=== PATIENT | male | born 1955 | race Caucasian/White ===

== ENCOUNTER → 2016-06-23 | Outpatient (REF) | payer OTHER ==
[~2016-06-23] MED LIST: ASPI81TA85 PO; CELE-19 PO; COUM1TAB17 PO; CRES20TA PO; GABA600T PO; JANU100T PO; JARDIANCE PO; LANTINJ4 SC; LISI-538 PO; LYRI75CA PO; METF1000 PO; MOBI15TA PO; MULT1TAB9 PO; OMEP20CA3 PO; PERC5TAB6 PO; acetaminophen PO; sleep aid OR; tramadol OR
[2016-06-23 11:41] LABS: ANION GAP 9 MEQ/L (8-16); BLOOD UREA NITROGEN 19 MG/DL (7-18); CALCIUM LEVEL 9.3 MG/DL (8.8-10.2); CARBON DIOXIDE LEVEL 29 MEQ/L (21-32); CHLORIDE LEVEL 105 MEQ/L (98-107); CHOLESTEROL LEVEL 124 MG/DL (<200); CREATININE FOR GFR 1.02 MG/DL (0.70-1.30); GLOMERULAR FILTRATION RATE > 60.0 (>49); GLUCOSE, FASTING 109 MG/DL (80-110); POTASSIUM SERUM 4.2 MEQ/L (3.5-5.1); SODIUM LEVEL 143 MEQ/L (136-145); TRIGLYCERIDES LEVEL 118 MG/DL (<150)
== END ==
LOC: M SFHCCLAY 08:32
PROVIDERS: ATTEND Family Medicine
DX: I10 Essential (primary) hypertension (principal); E11.9 Type 2 diabetes mellitus without complications

== ENCOUNTER → 2016-09-20 | Outpatient (REF) | payer OTHER | LOC: M SFHCCLAY 09:51 | PROVIDERS: ATTEND Family Medicine | DX: E11.9 Type 2 diabetes mellitus without complications (principal) ==

== ENCOUNTER → 2016-11-07 | Outpatient (REF) | payer OTHER ==
[2016-11-07 11:57] LABS: BASO % 0.8 % (0.0-1.0); EOS # 0.1 K/mm3 (0.0-0.50); EOS % 1.6 % (0.0-3.0); LARGE UNSTAINED CELL # 0.2 K/mm3 (0.0-0.4); LARGE UNSTAINED CELL % 2.3 % (0.0-4.0); LYMPH # 1.8 K/mm3 (1.5-4.5); LYMPH % 26.9 % (24.0-44.0); MEAN CORPUSCULAR HEMOGLOBIN 28.8 pg (27.0-33.0); MEAN CORPUSCULAR HGB CONC 32.8 g/dl (32.0-36.5); MEAN CORPUSCULAR VOLUME 87.7 fl (80.0-96.0); MONO # 0.4 K/mm3 (0.0-0.8); MONO % 5.8 % (0.0-5.0); NEUTROPHILS # 4.1 K/mm3 (1.8-7.7); NEUTROPHILS % 62.6 % (36.0-66.0); PLATELET COUNT, AUTOMATED 165 k/mm3 (150-450); RED CELL DISTRIBUTION WIDTH 14.4 % (11.5-14.5); WHITE BLOOD COUNT 6.5 K/mm3 (4.0-10.0)
[2016-11-07 13:19] LABS: ERYTHROCYTE SEDIMENTATION RATE 2 mm/hr (0-20)
[2016-11-09 00:10] LABS: Lyme Disease IgG/IgM Antibodie <0.91 ISR (0.00-0.90); Lyme Disease IgM Ab Quantitati <0.80 index (0.00-0.79)
== END ==
LOC: M LABDRAW1 11:18
PROVIDERS: ATTEND Orthopaedic Surgery
DX: M75.111 Incomplete rotator cuff tear or rupture of right shoulder, not specified as traumatic (principal)

== ENCOUNTER → 2017-01-04 | Outpatient (REF) | payer OTHER ==
[~2017-01-04] MED LIST changes: -CELE-19 PO; +CELE1CAP4 PO; -METF1000 PO; +METF10004 PO; +PERC5TAB12 PO; -PERC5TAB6 PO
[2017-01-04 11:43] LABS: ALT/SGPT 45 U/L (12-78); ANION GAP 9 MEQ/L (8-16); BLOOD UREA NITROGEN 16 MG/DL (7-18); CALCIUM LEVEL 9.5 MG/DL (8.8-10.2); CARBON DIOXIDE LEVEL 29 MEQ/L (21-32); CHLORIDE LEVEL 103 MEQ/L (98-107); CHOLESTEROL LEVEL 148 MG/DL (<200); CREATININE FOR GFR 1.07 MG/DL (0.70-1.30); GLOMERULAR FILTRATION RATE > 60.0 (>49); GLUCOSE, FASTING 119 MG/DL (80-110); POTASSIUM SERUM 4.3 MEQ/L (3.5-5.1); SODIUM LEVEL 141 MEQ/L (136-145); TRIGLYCERIDES LEVEL 163 MG/DL (<150)
== END ==
LOC: M SFHCCLAY 07:34
PROVIDERS: ATTEND Family Medicine
DX: E11.40 Type 2 diabetes mellitus with diabetic neuropathy, unspecified (principal); Z79.4 Long term (current) use of insulin

== ENCOUNTER → 2017-04-18 | Outpatient (REF) | payer OTHER ==
[2017-04-18 11:58] LABS: ANION GAP 8 MEQ/L (8-16); BLOOD UREA NITROGEN 16 MG/DL (7-18); CALCIUM LEVEL 9.6 MG/DL (8.8-10.2); CARBON DIOXIDE LEVEL 29 MEQ/L (21-32); CHLORIDE LEVEL 104 MEQ/L (98-107); CREATININE FOR GFR 0.95 MG/DL (0.70-1.30); GLOMERULAR FILTRATION RATE > 60.0 (>49); GLUCOSE, FASTING 121 MG/DL (80-110); POTASSIUM SERUM 4.3 MEQ/L (3.5-5.1); SODIUM LEVEL 141 MEQ/L (136-145)
== END ==
LOC: M SFHCCLAY 08:48
PROVIDERS: ATTEND Family Medicine
DX: E11.9 Type 2 diabetes mellitus without complications (principal)

== ENCOUNTER → 2017-05-04 | Outpatient (CLI) | payer OTHER ==
--- NOTE | 2017-05-04 09:42 | REP ---
Clinical: Epigastric pain and nausea. Technique: Real time castro scale ultrasound examination using curved array transducer. Findings: The liver demonstrates diffuse increased parenchymal echogenicity with poor through transmission compatible with fatty infiltration. No focal hepatic lesion identified. Visualized portions of the pancreas are unremarkable although limited by interposed bowel gas. The gallbladder is normal and without gallstones, wall thickening, or pericholecystic fluid. No significant biliary ductal dilatation is appreciated and the common bile duct measures 7 mm maximal diameter (upper limits of normal). Right kidney demonstrates mild cortical lobulation along with 1.9 cm and 1.0 cm mid and lower pole complex cysts which appear essentially unchanged compared to CT dated 2010. No hydronephrosis. Right kidney measures 12.8 x 6.6 x 5.3 cm. No ascites. Impression: 1. Hepatosteatosis without focal hepatic lesion identified. 2. Chronic-appearing changes to the kidney as well as two complex cysts which are essentially unchanged compared to CT dated 2010, but may warrant annual sonographic follow-up examination. Signed by Tor Bautista MD 05/04/2017 09:34 A
== END ==
LOC: M RAD 08:01
PROVIDERS: ATTEND Family Medicine
DX: R11.0 Nausea (principal)

== ENCOUNTER → 2017-06-29 | Outpatient (REF) | payer OTHER ==
[2017-06-29 14:12] LABS: ANION GAP 9 MEQ/L (8-16); BLOOD UREA NITROGEN 17 MG/DL (7-18); CALCIUM LEVEL 9.1 MG/DL (8.8-10.2); CARBON DIOXIDE LEVEL 26 MEQ/L (21-32); CHLORIDE LEVEL 106 MEQ/L (98-107); CREATININE FOR GFR 1.02 MG/DL (0.70-1.30); GLOMERULAR FILTRATION RATE > 60.0 (>49); GLUCOSE, FASTING 96 MG/DL (80-110); POTASSIUM SERUM 4.4 MEQ/L (3.5-5.1); SODIUM LEVEL 141 MEQ/L (136-145)
== END ==
LOC: M LABDRAWC 12:14
DX: M65.311 Trigger thumb, right thumb (principal); M65.331 Trigger finger, right middle finger; M65.341 Trigger finger, right ring finger; Z01.812 Encounter for preprocedural laboratory examination

== ENCOUNTER → 2017-07-18 | Outpatient (REF) | payer OTHER ==
[2017-07-18 12:16] LABS: ESTIMATED AVERAGE GLUCOSE 157 MG/DL (60-110); HEMOGLOBIN A1c 7.1 %
== END ==
LOC: M SFHCCLAY 07:39
DX: E11.40 Type 2 diabetes mellitus with diabetic neuropathy, unspecified (principal)

== ENCOUNTER → 2017-10-31 | Outpatient (REF) | payer OTHER ==
[2017-10-31 11:51] LABS: ANION GAP 7 MEQ/L (8-16); BLOOD UREA NITROGEN 18 MG/DL (7-18); CALCIUM LEVEL 9.3 MG/DL (8.8-10.2); CARBON DIOXIDE LEVEL 26 MEQ/L (21-32); CHLORIDE LEVEL 108 MEQ/L (98-107); CREATININE FOR GFR 0.97 MG/DL (0.70-1.30); GLOMERULAR FILTRATION RATE > 60.0 (>49); GLUCOSE, FASTING 130 MG/DL (70-100); POTASSIUM SERUM 4.5 MEQ/L (3.5-5.1); SODIUM LEVEL 141 MEQ/L (136-145)
[2017-10-31 13:14] LABS: ESTIMATED AVERAGE GLUCOSE 160 MG/DL (60-110); HEMOGLOBIN A1c 7.2 %
== END ==
LOC: M SFHCCLAY 07:44
DX: E11.40 Type 2 diabetes mellitus with diabetic neuropathy, unspecified (principal); I10 Essential (primary) hypertension
CPT/HCPCS: 83036

== ENCOUNTER → 2018-05-15 | Outpatient (REF) | payer OTHER ==
[2018-05-16 12:40] LABS: ESTIMATED AVERAGE GLUCOSE 143 MG/DL (60-110); HEMOGLOBIN A1c 6.6 %
== END ==
LOC: M SFHCCLAY 15:59
DX: E11.21 Type 2 diabetes mellitus with diabetic nephropathy (principal)
CPT/HCPCS: 83036

== ENCOUNTER → 2018-08-15 | Outpatient (REF) | payer OTHER ==
[~2018-08-15] MED LIST changes: -GABA600T PO; +GABA600T4 PO
[2018-08-15 16:57] LABS: BLOOD UREA NITROGEN 20 MG/DL (7-18); CALCIUM LEVEL 9.7 MG/DL (8.8-10.2); CARBON DIOXIDE LEVEL 27 MEQ/L (21-32); CHLORIDE LEVEL 105 MEQ/L (98-107); CPK CREATINE PHOSPHOKINASE 196 U/L (39-308); CREATININE FOR GFR 1.14 MG/DL (0.70-1.30); GLOMERULAR FILTRATION RATE > 60.0 (>49); GLUCOSE, FASTING 123 MG/DL (70-100); POTASSIUM SERUM 4.8 MEQ/L (3.5-5.1); SODIUM LEVEL 141 MEQ/L (136-145); TROPONIN I 0.04 NG/ML (< 0.10)
[2018-08-15 17:38] LABS: HEMOGLOBIN A1c 6.8 %
== END ==
LOC: M SFHCCLAY 09:52
PROVIDERS: ATTEND Family Medicine
DX: E11.21 Type 2 diabetes mellitus with diabetic nephropathy (principal); R07.9 Chest pain, unspecified; Z79.01 Long term (current) use of anticoagulants

== ENCOUNTER → 2018-10-24 | Outpatient (REF) | payer MEDICARE, OTHER ==
[~2018-10-24] MED LIST changes: -CRES20TA PO; +CRES20TA2 PO
[2018-10-25 11:37] LABS: BASO # 0.1 10^3/uL (0.0-0.2); EOS # 0.2 10^3/uL (0.0-0.50); EOS % 3.8 % (0.0-3.0); HEMATOCRIT 45.4 % (42.0-52.0); HEMOGLOBIN 14.7 g/dl (13.5-17.5); LYMPH # 1.6 10^3/uL (1.5-4.5); LYMPH % 25.2 % (24.0-44.0); MEAN CORPUSCULAR HGB CONC 32.4 g/dl (32.0-36.5); MEAN CORPUSCULAR VOLUME 92.7 fl (80.0-96.0); MONO # 0.6 10^3/uL (0.0-0.8); NEUTROPHILS # 3.8 10^3/uL (1.8-7.7); NEUTROPHILS % 60.5 % (36.0-66.0); PLATELET COUNT, AUTOMATED 170 10^3/uL (150-450); WHITE BLOOD COUNT 6.2 10^3/uL (4.0-10.0)
[2018-10-25 11:41] LABS: BLOOD UREA NITROGEN 21 MG/DL (7-18); CALCIUM LEVEL 9.9 MG/DL (8.8-10.2); CARBON DIOXIDE LEVEL 30 MEQ/L (21-32); CHLORIDE LEVEL 102 MEQ/L (98-107); CREATININE FOR GFR 1.17 MG/DL (0.70-1.30); GLOMERULAR FILTRATION RATE > 60.0 (>49); GLUCOSE, FASTING 127 MG/DL (70-100); POTASSIUM SERUM 4.1 MEQ/L (3.5-5.1); SODIUM LEVEL 139 MEQ/L (136-145)
== END ==
LOC: M LABDRAWC 11:15
PROVIDERS: ATTEND Physician Assistant
DX: I25.10 Atherosclerotic heart disease of native coronary artery without angina pectoris (principal)

== ENCOUNTER → 2018-11-23 | Outpatient (REF) | payer MEDICARE, OTHER ==
[2018-11-23 12:17] LABS: HEMATOCRIT 45.5 % (42.0-52.0); MEAN CORPUSCULAR HEMOGLOBIN 29.9 pg (27.0-33.0); MEAN CORPUSCULAR VOLUME 90.6 fl (80.0-96.0); PLATELET COUNT, AUTOMATED 127 10^3/uL (150-450); RED BLOOD COUNT 5.02 10^6/uL (4.30-6.10); WHITE BLOOD COUNT 6.2 10^3/uL (4.0-10.0)
[2018-11-23 12:25] LABS: ALBUMIN 4.1 GM/DL (3.2-5.2); ALT/SGPT 27 U/L (12-78); BILIRUBIN,TOTAL 0.4 MG/DL (0.2-1.0); BLOOD UREA NITROGEN 18 MG/DL (7-18); CALCIUM LEVEL 9.1 MG/DL (8.8-10.2); CARBON DIOXIDE LEVEL 29 MEQ/L (21-32); CHLORIDE LEVEL 106 MEQ/L (98-107); CHOLESTEROL LEVEL 125 MG/DL (<200); CHOLESTEROL RISK RATIO 3.205 (<5); CREATININE FOR GFR 0.93 MG/DL (0.70-1.30); GLOMERULAR FILTRATION RATE > 60.0 (>49); GLUCOSE, FASTING 110 MG/DL (70-100); HDL CHOLESTEROL 39 MG/DL (>40); LDL CHOLESTEROL 57 MG/DL (<100); NON-HDL-C 86 MG/DL; POTASSIUM SERUM 4.3 MEQ/L (3.5-5.1); SODIUM LEVEL 141 MEQ/L (136-145); TOTAL PROTEIN 6.9 GM/DL (6.4-8.2); TRIGLYCERIDES LEVEL 144 MG/DL (<150)
== END ==
LOC: M LABDRAWC 11:27
PROVIDERS: ATTEND Physician Assistant
DX: I25.10 Atherosclerotic heart disease of native coronary artery without angina pectoris (principal)

== ENCOUNTER 2018-12-13 08:11 | Outpatient (RCR) | payer MEDICARE, OTHER ==
[2018-12-13] MEDS ORDERED: METO1TAB87 PO (08:30)
[2018-12-13] MEDS ORDERED: PLAV1TAB2 PO (08:31)
[2018-12-13] MEDS ORDERED: LANTINJ4 SC (08:31)
[2018-12-13] MEDS ORDERED: CYCL10TA PO (08:32)
[2018-12-13] MEDS ORDERED: NESI25TA PO (08:33)
[2018-12-13] MEDS ORDERED: NEUR300C PO (08:34)
[2018-12-13] MEDS ORDERED: NITR0.4S14 SL (08:34)
--- NOTE | 2018-12-13 09:30 | CARECAPL ---
Assessment Account #s: Initial Assessment General Diagnoses: CABG, Stent Date of event: Sep 13, 2018 Physician: Giorgio Glaser Allergies: Coded Allergies: MS - Apple (Unverified Allergy, Intermediate, SURINAMESE APPLE HIVES, 09/18/12) MS - Morphine (Unverified Adverse Reaction, Intermediate, EXTREME HEAT, 08/28/15) MS - Simvastatin (Unverified Adverse Reaction, Intermediate, MUSCLE PAINS, 09/18/12) Risk strat for cardiac event: High Exercise Assessment: Initial Assessment Exercise Prescription Plan educate and increase edurance and flexibility through monitored exercise. Modalities initiated: Treadmill (will add speed 1.5 for 10 minutes), Nustep (will add resistance of 1 for 10 minutes), Arm Aerometer (resistence 1 for 6 minutes), Dumbells (1lb rep of 10), Recumbent Bike (resistance of 1 fo 5 minutes) Frequency: 2 Duration (Minutes) 30-60 minutes total exercise a day. 15-20 work intervals in minutes. prn rest intervals in minutes. Functional Capacity Goal Sustained Metabolic Equivalent of a task (MET) goal of 2.5-3.0 for 15-20 minutes. Intensity: 3-Moderate Progression (METS) Increase by: 0.5 METS every: 3-5 sessions Angina with ex: No Target Heart Rate rest + 35-40 per beta daniela therapy Hypertension: No Hypertension controlled with: Medication (lopressor and lisinopril) Resting 128/69 Medications Scheduled Alogliptin Benzoate (Nesina), 1 TAB PO DAILY, (Reported) Clopidogrel Bisulfate (Plavix), 1 TAB PO DAILY, (Reported) Cyclobenzaprine HCl (Cyclobenzaprine HCl), 1 TAB PO TID, (Reported) Gabapentin (Neurontin), 300 MG PO BID, (Reported) Insulin Glargine,Hum.rec.anlog (Lantus Solostar), 45 UNITS SC QHS, (Reported) Insulin Glargine,Hum.rec.anlog (Lantus Solostar), 1 UNITS SC QHS, (Reported) Lisinopril (Lisinopril), 20 MG PO DAILY, (Reported) Metformin HCl (Metformin HCl), 1,000 MG PO BID, (Reported) Metoprolol Tartrate (Metoprolol Tartrate), 1 TAB PO BID, (Reported) Nitroglycerin (Nitroglycerin), 0.4 MG SL ASDIRECTED, (Reported) Omeprazole (Omeprazole), 20 MG PO DAILY, (Reported) Rosuvastatin Calcium (Crestor), 20 MG PO QHS, (Reported) Sitagliptin Phosphate (Januvia), 100 MG PO DAILY, (Reported) Warfarin Sodium (Coumadin), 2.5 MG PO DAILY, (Reported) [Jardiance], 25 MG PO DAILY, (Reported) Scheduled PRN [acetaminophen], 650 MG PO PRN PRN for PAIN, (Reported) Discontinued Medications Celecoxib (Celebrex), 200 MG PO BID, (Reported) Discontinued Reason: Pt states not taking Oxycodone HCl/Acetaminophen (Percocet 5-325 mg Tablet), 1-2 TAB PO Q4HP PRN for PAIN, (Reported) Discontinued Reason: Pt states not taking Pregabalin (Lyrica), 75 MG PO BID, (Reported) Discontinued Reason: Pt states not taking Target Goals Individual exercise Rx (1) BP 140/90 or 130/80 if DM or CKD (1) Aerobic active 30+min 5 days per week (1) Nutrition Date: Dec 13, 2018 Assessment: Initial Assessment Lipid- med/supplement crestor Diabetes Diabetes: Yes HbA1c (%): 6.8 Monitor Blood Sugar at home: Yes Frequency daily Weight Management Weight (lbs): 199.8 Height (inches): 70 Waist Circumference (Inches): 39 BMI: 28.55 Weight goal: 160 Special Diet: mediteranean diet Alcohol: special Alcohol Type: beer Alcohol Amount: 1 Diet Access Tool: Rate your plate Score: 51 Intervention Auto Mechanic Apprentice Consult: No Nurse/patient discussion: Yes Dietary Goals eat healthier Diet Class: No Referral to Diabetes education: No Referral to lipid clinic: No Referral to weight mangement p: No Target goal LDL-C<100 if triglycerides are >200 Non-HDL-C should be <130 (1) LDL-C<70 for high risk patients (4) HbA1c<7% (1) BMI<25 Waist cir<40in M/<35in F (1) Education Date: Dec 13, 2018 Assessment: Initial Assessment Knowledge Test Score: 8 Family Support: Yes Quit: never smoked Target Goals Complete cessation of tobacco use (1). Psychosocial Date: Dec 13, 2018 Assessment: Initial Assessment Psych Test (Initial/Discharge) Tool Used: CESD Score: 0 Intervention Physician Consult: No Physician Referral: No Psychotropic medication none Target Goal Assess presence or absence of depression using a valid screening tool (1). Maximize coping skills (2). Positive support system (2). Patient/Program Goal Preventative Medication: Yes Clopidogrel, Yes Beta blockade, Yes YOLANDA Inhibitor, Yes Statin/OTR lipid Lowering Fall Risk Assess: Yes (no fall risk) Provider Assessment Provider Assessment: Proceed with rehab Anny Urbina RN Dec 13, 2018 09:30
== END 2018-12-16 ==
LOC: M CR 08:11
PROVIDERS: ATTEND Internal Medicine Cardiovascular Disease
DX: Z95.1 Presence of aortocoronary bypass graft (principal)

== ENCOUNTER → 2018-12-19 | Outpatient (REF) | payer MEDICARE, OTHER ==
[~2018-12-19] MED LIST changes: +CYCL10TA PO; +METO1TAB87 PO; +NESI25TA PO; +NEUR300C PO; +NITR0.4S14 SL; +PLAV1TAB2 PO
== END ==
LOC: M SFHCCLAY 08:49
PROVIDERS: ATTEND Family Medicine
DX: E11.9 Type 2 diabetes mellitus without complications (principal); Z95.1 Presence of aortocoronary bypass graft; Z95.5 Presence of coronary angioplasty implant and graft; Z53.8 Procedure and treatment not carried out for other reasons

== ENCOUNTER → 2018-12-25 | Outpatient (REF) | payer MEDICARE, OTHER ==
[~2018-12-25] MED LIST changes: -OMEP20CA3 PO; +OMEP20CA4 PO
[2018-12-25 12:07] LABS: HEMOGLOBIN A1c 6.7 %
[2018-12-25 12:20] LABS: BLOOD UREA NITROGEN 26 MG/DL (7-18); CALCIUM LEVEL 9.4 MG/DL (8.8-10.2); CARBON DIOXIDE LEVEL 27 MEQ/L (21-32); CHLORIDE LEVEL 104 MEQ/L (98-107); CHOLESTEROL LEVEL 127 MG/DL (<200); CHOLESTEROL RISK RATIO 3.175 (<5); CREATININE FOR GFR 0.92 MG/DL (0.70-1.30); GLOMERULAR FILTRATION RATE > 60.0 (>49); GLUCOSE, FASTING 107 MG/DL (70-100); HDL CHOLESTEROL 40 MG/DL (>40); LDL CHOLESTEROL 59 MG/DL (<100); NON-HDL-C 87 MG/DL; POTASSIUM SERUM 4.5 MEQ/L (3.5-5.1); SODIUM LEVEL 138 MEQ/L (136-145); TRIGLYCERIDES LEVEL 140 MG/DL (<150)
[2018-12-25 12:41] LABS: CREATININE, URINE 96.9 MG/DL; MALB URINE SIEMENS 91.1 MG/L
== END ==
LOC: M SFHCCLAY 07:23
PROVIDERS: ATTEND Family Medicine
DX: E11.9 Type 2 diabetes mellitus without complications (principal); Z95.1 Presence of aortocoronary bypass graft; Z95.5 Presence of coronary angioplasty implant and graft
CPT/HCPCS: 80048; 80061; 82043; 83036; G0463

== ENCOUNTER → 2019-01-16 | Outpatient (RCR) | payer MEDICARE, OTHER ==
--- NOTE | 2019-01-09 08:44 | CARECAPL ---
Assessment Account #s: Re-Assessment I General Diagnoses: CABG, Stent Date of event: Sep 13, 2018 Allergies: Coded Allergies: MS - Apple (Unverified Allergy, Intermediate, ARGENTINE APPLE HIVES, 09/18/12) MS - Morphine (Unverified Adverse Reaction, Intermediate, EXTREME HEAT, 08/28/15) MS - Simvastatin (Unverified Adverse Reaction, Intermediate, MUSCLE PAINS, 09/18/12) Date Entered Program: Dec 13, 2018 Risk strat for cardiac event: High Exercise Date: Jan 04, 2019 Assessment: Re-Assessment I Exercise Prescription Plan educate and increase endurance and flexibility through monitored exercise Modalities initiated: Treadmill (speed 2.3 incline 0.5 mets 3.08 RPE 2), Nustep (Level 3 mets 4.7 RPE 2), Arm Aerometer (resistance 1.5 mets 2.4 RPE 3), Dumbells (2lb reps 12-15 2 sets RPE 3), Recumbent Bike (Resistance 2 Mets 5.0 RPE 3) Frequency: 2-3 Duration (Minutes) 30-60 minutes total exercise a day. 15-20 work intervals in minutes. prn rest intervals in minutes. Functional Capacity Goal Sustained Metabolic Equivalent of a task (MET) goal of 4.5-5.5 for 15-20 minutes. Intensity: 3-Moderate Progression (METS) Increase by: 0.5 METS every: 3-5 sessions Angina with ex: No Target Heart Rate rest + 35-40 per beta daniela therapy Resistance Training: Yes Weight (pounds): 2 Reps: 12-15 Resting prior to exercise 140/80 after exercise 130/70 Peak Exercise BP 160/80 Meds metoprolol and lisinopril Medications Scheduled Alogliptin Benzoate (Nesina), 1 TAB PO DAILY, (Reported) Clopidogrel Bisulfate (Plavix), 1 TAB PO DAILY, (Reported) Cyclobenzaprine HCl (Cyclobenzaprine HCl), 1 TAB PO TID, (Reported) Gabapentin (Neurontin), 300 MG PO BID, (Reported) Insulin Glargine,Hum.rec.anlog (Lantus Solostar), 45 UNITS SC QHS, (Reported) Insulin Glargine,Hum.rec.anlog (Lantus Solostar), 1 UNITS SC QHS, (Reported) Lisinopril (Lisinopril), 20 MG PO DAILY, (Reported) Metformin HCl (Metformin HCl), 1,000 MG PO BID, (Reported) Metoprolol Tartrate (Metoprolol Tartrate), 1 TAB PO BID, (Reported) Nitroglycerin (Nitroglycerin), 0.4 MG SL ASDIRECTED, (Reported) Omeprazole (Omeprazole), 20 MG PO DAILY, (Reported) Rosuvastatin Calcium (Crestor), 20 MG PO QHS, (Reported) Sitagliptin Phosphate (Januvia), 100 MG PO DAILY, (Reported) Warfarin Sodium (Coumadin), 2.5 MG PO DAILY, (Reported) [Jardiance], 25 MG PO DAILY, (Reported) Scheduled PRN [acetaminophen], 650 MG PO PRN PRN for PAIN, (Reported) Current BP 140/80 Med Change: No Intervention Education: Ex safety (patient verbalized understanding that he should drink plenty of water, wear comfortable clothing and shoes during exercise.), S/S to report (discussed s/s of chest pain such as tightness, radiating pain and nausea/sweating. Patient verbalized understanding.), RPE Scale (patient demonstrates independence), Equipment orientation (patient needs minimal assistance), warm up/cool down (patient demonstrates independence), Understand BP (Patient verbalizes some understanding but needs some direction in understanding.) Target Goals Individual exercise Rx (1) BP 140/90 or 130/80 if DM or CKD (1) Aerobic active 30+min 5 days per week (1) Nutrition Date: Jan 09, 2019 Assessment: Re-Assessment I Med Change: No Medication Change: No Random Blood Sugar: 129 Blood sugar in range: Yes Current Weight (pounds): 198.8 Weight Goal 160 Intervention Director Electrical Engineering Consult: No Nurse/patient discussion: No Dietary Goals eat healthier portions Diet Class: No Target goal LDL-C<100 if triglycerides are >200 Non-HDL-C should be <130 (1) LDL-C<70 for high risk patients (4) HbA1c<7% (1) BMI<25 Waist cir<40in M/<35in F (1) Education Date: Jan 09, 2019 Assessment: Re-Assessment I Intervention Referral to smoking cessation: No Individual education and couns: No Tobacco Adjunct: No Education class schedule given: No Attended education classes: No Target Goals Complete cessation of tobacco use (1). Psychosocial Date: Jan 09, 2019 Assessment: Re-Assessment I Med Change: No Target Goal Assess presence or absence of depression using a valid screening tool (1). Maximize coping skills (2). Positive support system (2). Patient/Program Goal Preventative Medication: Yes Clopidogrel, Yes Beta blockade, Yes YOLANDA Inhibitor, Yes Statin/OTR lipid Lowering Fall Risk Assess: Yes (no fall risk) Provider Assessment Session Number: 3 Provider Assessment: Proceed with rehab (progressing) Anny Urbina RN Jan 09, 2019 08:44
== END ==
LOC: M CR 12-26 14:03
PROVIDERS: ATTEND Internal Medicine Cardiovascular Disease
DX: Z95.1 Presence of aortocoronary bypass graft (principal)

== ENCOUNTER 2019-02-14 11:08 | Outpatient (RCR) | payer MEDICARE, OTHER ==
--- NOTE | 2019-01-30 11:06 | CARECAPL ---
Assessment Account #s: Re-Assessment II General Diagnoses: CABG, Stent Date of event: Sep 13, 2018 Physician: Giorgio Glaser Allergies: Coded Allergies: MS - Apple (Unverified Allergy, Intermediate, APPLE HIVES, 09/18/12) MS - Morphine (Unverified Adverse Reaction, Intermediate, EXTREME HEAT, 08/28/15) MS - Simvastatin (Unverified Adverse Reaction, Intermediate, MUSCLE PAINS, 09/18/12) Date Entered Program: Dec 13, 2018 Risk strat for cardiac event: High Exercise Date: Jan 30, 2019 Assessment: Re-Assessment II Exercise Prescription Modalities initiated: Treadmill (2.5/2.0 mts 3.6 rpe 3 15 minutes), Nustep (L5 mts 5.5 rpe 3 15 minutes), Dumbells, Recumbent Bike (R3 mts 3.7 rpe 4 10 minutes), Elliptimill (L1 mts 2.5 rpe 4 5 minutes) Frequency: 2 Duration (Minutes) minutes total exercise a day. work intervals in minutes. rest intervals in minutes. Functional Capacity Goal Sustained Metabolic Equivalent of a task (MET) goal of 5.5-6.0 for 15-20 minutes. Progression (METS) Increase by: METS every: sessions Angina with ex: No Resistance Training: Yes Weight (pounds): 4 Reps: 8-12 Medications Scheduled Alogliptin Benzoate (Nesina), 1 TAB PO DAILY, (Reported) Clopidogrel Bisulfate (Plavix), 1 TAB PO DAILY, (Reported) Cyclobenzaprine HCl (Cyclobenzaprine HCl), 1 TAB PO TID, (Reported) Gabapentin (Neurontin), 300 MG PO BID, (Reported) Insulin Glargine,Hum.rec.anlog (Lantus Solostar), 45 UNITS SC QHS, (Reported) Insulin Glargine,Hum.rec.anlog (Lantus Solostar), 1 UNITS SC QHS, (Reported) Lisinopril (Lisinopril), 20 MG PO DAILY, (Reported) Metformin HCl (Metformin HCl), 1,000 MG PO BID, (Reported) Metoprolol Tartrate (Metoprolol Tartrate), 1 TAB PO BID, (Reported) Nitroglycerin (Nitroglycerin), 0.4 MG SL ASDIRECTED, (Reported) Omeprazole (Omeprazole), 20 MG PO DAILY, (Reported) Rosuvastatin Calcium (Crestor), 20 MG PO QHS, (Reported) Sitagliptin Phosphate (Januvia), 100 MG PO DAILY, (Reported) Warfarin Sodium (Coumadin), 2.5 MG PO DAILY, (Reported) [Jardiance], 25 MG PO DAILY, (Reported) Scheduled PRN [acetaminophen], 650 MG PO PRN PRN for PAIN, (Reported) Current BP 124/72 Med Change: No Intervention Home exercise: Type (walking, biking, join local gym), Frequency (3-5 times per week), Duration (30-60 minutes) Resistance Training: Yes ( 3-5 times per week 15-20 minutes) Education Goals Met: Yes (covered last ITP) Target Goals Individual exercise Rx (1) BP 140/90 or 130/80 if DM or CKD (1) Aerobic active 30+min 5 days per week (1) Nutrition Date: Jan 30, 2019 Assessment: Re-Assessment II Medication Change: No Random Blood Sugar: 131 Blood sugar in range: Yes Current Weight (pounds): 198.8 Intervention Diet Class: Yes Referral to Diabetes education: No Referral to lipid clinic: No Referral to weight mangement p: No Education Goals Met: Yes (covered last ITP- will review when see patient care representative) Target goal LDL-C<100 if triglycerides are >200 Non-HDL-C should be <130 (1) LDL-C<70 for high risk patients (4) HbA1c<7% (1) BMI<25 Waist cir<40in M/<35in F (1) Education Date: Jan 30, 2019 Assessment: Re-Assessment II Intervention Attended education classes: Yes (covered last ITP) Education Goals Met: Yes Target Goals Complete cessation of tobacco use (1). Psychosocial Date: Jan 30, 2019 Assessment: Re-Assessment II Stress Management Class: Yes (covered last ITP) Uses Stress Management Skills: Yes Education Goals Met: Yes Target Goal Assess presence or absence of depression using a valid screening tool (1). Maximize coping skills (2). Positive support system (2). Provider Assessment Session Number: 9 Provider Assessment: No changes (good attendance. works hard, excellent attitude) Mar Melton RN Jan 30, 2019 11:06
== END 2019-02-16 ==
LOC: M CR 11:08
PROVIDERS: ATTEND Internal Medicine Cardiovascular Disease
DX: Z95.1 Presence of aortocoronary bypass graft (principal)

== ENCOUNTER 2019-03-15 08:48 | Outpatient (RCR) | payer OTHER ==
--- NOTE | 2019-02-25 14:31 | CARECAPL ---
Assessment Account #s: Re-Assessment II (III) General Diagnoses: CABG, Stent Date of event: Sep 13, 2018 Physician: Giorgio Glaser Allergies: Coded Allergies: MS - Apple (Unverified Allergy, Intermediate, APPLE HIVES, 09/18/12) MS - Morphine (Unverified Adverse Reaction, Intermediate, EXTREME HEAT, 08/28/15) MS - Simvastatin (Unverified Adverse Reaction, Intermediate, MUSCLE PAINS, 09/18/12) Date Entered Program: Dec 13, 2018 Risk strat for cardiac event: High Exercise Date: Feb 25, 2019 Assessment: Re-Assessment II (III) Stages of change: action Exercise Prescription Modalities initiated: Treadmill (2.8/3.0 mts 4.3 rpe 3 15 minutes), Nustep (L6 mts 6.1 rpe 4 15 minutes), Recumbent Bike (L4 mts 4.3 rpe 4 10 minutes), Elliptimill (L1 mts 2.44 rpe 4 10 minutes) Frequency: 2-3 Duration (Minutes) 30 - 60 minutes total exercise a day. 15 - 20 work intervals in minutes. PRN rest intervals in minutes. Functional Capacity Goal Sustained Metabolic Equivalent of a task (MET) goal of 5.5-6.0 for 15-20 minutes. Intensity: 3-Moderate Progression (METS) Increase by: METS every: sessions Angina with ex: No Resistance Training: Yes Weight (pounds): 8 Reps: 8-12 Hypertension: Yes Hypertension controlled with: Other (exercise) Resting 136/72 Peak Exercise BP 150/80 Meds see below Medications Scheduled Alogliptin Benzoate (Nesina), 1 TAB PO DAILY, (Reported) Clopidogrel Bisulfate (Plavix), 1 TAB PO DAILY, (Reported) Cyclobenzaprine HCl (Cyclobenzaprine HCl), 1 TAB PO TID, (Reported) Gabapentin (Neurontin), 300 MG PO BID, (Reported) Insulin Glargine,Hum.rec.anlog (Lantus Solostar), 45 UNITS SC QHS, (Reported) Insulin Glargine,Hum.rec.anlog (Lantus Solostar), 1 UNITS SC QHS, (Reported) Lisinopril (Lisinopril), 20 MG PO DAILY, (Reported) Metformin HCl (Metformin HCl), 1,000 MG PO BID, (Reported) Metoprolol Tartrate (Metoprolol Tartrate), 1 TAB PO BID, (Reported) Nitroglycerin (Nitroglycerin), 0.4 MG SL ASDIRECTED, (Reported) Omeprazole (Omeprazole), 20 MG PO DAILY, (Reported) Rosuvastatin Calcium (Crestor), 20 MG PO QHS, (Reported) Sitagliptin Phosphate (Januvia), 100 MG PO DAILY, (Reported) Warfarin Sodium (Coumadin), 2.5 MG PO DAILY, (Reported) [Jardiance], 25 MG PO DAILY, (Reported) Scheduled PRN [acetaminophen], 650 MG PO PRN PRN for PAIN, (Reported) Current BP 120/76 after exercise Med Change: No Intervention Home exercise: Type (walking, biking, join local gym), Frequency (3-5 times per week), Duration (30-60 minutes) Resistance Training: Yes Education: Self pulse (location and timing), Ex safety (hydration, proper foot wear, not using cell phone), S/S to report (abnormal sob, dizziness), Low NA diet (15-2000 mg /day of na), BP medication (compliance), RPE Scale (1/5 scale for difficulty), Equipment orientation (proper use of equipment), warm up/cool down (to prevent injury), Understand BP (what is a good bp for you), Physical Active (importance of activity in you health plan) Education Goals Met: No (progressing toward goals) Target Goals Individual exercise Rx (1) BP 140/90 or 130/80 if DM or CKD (1) Aerobic active 30+min 5 days per week (1) Nutrition Date: Feb 25, 2019 Assessment: Re-Assessment II (III) Stages of change: action Diabetes Diabetes: Yes Fasting Blood Sugar: 121 Monitor Blood Sugar at home: Yes Intervention Diet Class: Yes (school psychological examiner see on 02/11/2019) Referral to Diabetes education: No Referral to lipid clinic: No Referral to weight mangement p: No Education S&S hypo/hyper glycemia (review of s/s of abnormal glucose levels), Eating Healthy (diabetic diet) Target goal LDL-C<100 if triglycerides are >200 Non-HDL-C should be <130 (1) LDL-C<70 for high risk patients (4) HbA1c<7% (1) BMI<25 Waist cir<40in M/<35in F (1) Education Date: Feb 25, 2019 Assessment: Re-Assessment II (III) Intervention Attended education classes: Yes (see prior ITP for education) Education Goals Met: No (progressing toward goals) Target Goals Complete cessation of tobacco use (1). Psychosocial Date: Feb 25, 2019 Assessment: Re-Assessment II (III) Stages of change: action Stress Management Class: Yes Uses Stress Management Skills: Yes Education Education: Coping Techniques (positive attitude toward exercise and education), Relaxation Techniques Target Goal Assess presence or absence of depression using a valid screening tool (1). Maximize coping skills (2). Positive support system (2). Provider Assessment Session Number: 17 Provider Assessment: No changes (excellent attendance, good attitude and works very hard toward goals. Receptive to all education) Mar Melton RN Feb 25, 2019 14:31
--- NOTE | 2019-03-15 16:33 | CARECAPL ---
Assessment Account #s: Discharge General Diagnoses: CABG, Stent Date of event: Sep 13, 2018 Physician: Giorgio Glaser Allergies: Coded Allergies: MS - Apple (Unverified Allergy, Intermediate, NIGERIEN APPLE HIVES, 09/18/12) MS - Morphine (Unverified Adverse Reaction, Intermediate, EXTREME HEAT, 08/28/15) MS - Simvastatin (Unverified Adverse Reaction, Intermediate, MUSCLE PAINS, 09/18/12) Date Entered Program: Dec 13, 2018 Risk strat for cardiac event: High Exercise Date: Mar 15, 2019 Assessment: Followup/Discharge Stages of change: maintenance Exercise Prescription Plan TO EDUCATE AND BUILD ENDURANCE THROUGH MONITORED EXERCISE Modalities initiated: Treadmill (METS=4.69/RPE=3), Nustep (METS=6.0/RPE=4), Dumbells (9#/RPE=3), Recumbent Bike (METS=4.3/RPE=4), Elliptimill (METS=4.0/RPE=3) Frequency: 3 Duration (Minutes) 30 - 60 minutes total exercise a day. 15 - 20 work intervals in minutes. PRN rest intervals in minutes. Functional Capacity Goal Sustained Metabolic Equivalent of a task (MET) goal of 5.5-6.0 for 15-20 minutes. Intensity: 3-Moderate Progression (METS) Increase by: METS every: sessions Angina with ex: No Resistance Training: Yes Weight (pounds): 9 Reps: 12-15 Hypertension: Yes Hypertension controlled with: Medication (LISINOPRIL,METOPROLOL) Resting 142/72 Peak Exercise BP 154/84 Medications Scheduled Alogliptin Benzoate (Nesina), 1 TAB PO DAILY, (Reported) Clopidogrel Bisulfate (Plavix), 1 TAB PO DAILY, (Reported) Cyclobenzaprine HCl (Cyclobenzaprine HCl), 1 TAB PO TID, (Reported) Gabapentin (Neurontin), 300 MG PO BID, (Reported) Insulin Glargine,Hum.rec.anlog (Lantus Solostar), 45 UNITS SC QHS, (Reported) Insulin Glargine,Hum.rec.anlog (Lantus Solostar), 1 UNITS SC QHS, (Reported) Lisinopril (Lisinopril), 20 MG PO DAILY, (Reported) Metformin HCl (Metformin HCl), 1,000 MG PO BID, (Reported) Metoprolol Tartrate (Metoprolol Tartrate), 1 TAB PO BID, (Reported) Nitroglycerin (Nitroglycerin), 0.4 MG SL ASDIRECTED, (Reported) Omeprazole (Omeprazole), 20 MG PO DAILY, (Reported) Rosuvastatin Calcium (Crestor), 20 MG PO QHS, (Reported) Sitagliptin Phosphate (Januvia), 100 MG PO DAILY, (Reported) Warfarin Sodium (Coumadin), 2.5 MG PO DAILY, (Reported) [Jardiance], 25 MG PO DAILY, (Reported) Scheduled PRN [acetaminophen], 650 MG PO PRN PRN for PAIN, (Reported) Current BP 142/80 Med Change: No Intervention Home exercise: Type (WALKING, HOME EXERCISE EQUIPMENT), Frequency (3-5 DAYS PER WEEK), Duration (30-60 MINUTES) Resistance Training: Yes Education: Self pulse (SEE EDUCATION ON PRIOR ITP) Education Goals Met: Yes Target Goals Individual exercise Rx (1) BP 140/90 or 130/80 if DM or CKD (1) Aerobic active 30+min 5 days per week (1) Nutrition Date: Mar 15, 2019 Assessment: Followup/Discharge Stages of change: maintenance Lipid- med/supplement ROSUVASTATIN 20 MG Q HS Med Change: No Diabetes Diabetes: Yes Fasting Blood Sugar: 138 Diabetes medication GLARGINE INSULIN,METFORMIN,JANUVIA Monitor Blood Sugar at home: Yes Medication Change: No Random Blood Sugar: 141 Weight Management Weight (lbs): 198.6 Waist Circumference (Inches): 38 BMI: 27.83 Special Diet: low salt, low-fat Vitamin/Supplements: Multivitamin Alcohol: none Diet Access Tool: Rate your plate Score: 52 Current Weight (pounds): 198.6 Intervention Home Restoration Service Supervisor Consult: No Nurse/patient discussion: Yes Dietary Goals MORE FRUITS AND VEGETABLES, LESS SALT,SMALLER PORTIONS SIZES Diet Class: Yes (MET WITH TAFFY CANDY MAKER 02/11/2019) Referral to Diabetes education: No Referral to lipid clinic: No Referral to weight mangement p: No Education S&S hypo/hyper glycemia (PATIENT VERBALIZES UNDERSTANDING OF S/S OF ABNORMAL GLUCOSE LEVELS), Relate Diabetes in CAD, Eating Healthy (DIABETIC DIET) Education Goals Met: Yes Target goal LDL-C<100 if triglycerides are >200 Non-HDL-C should be <130 (1) LDL-C<70 for high risk patients (4) HbA1c<7% (1) BMI<25 Waist cir<40in M/<35in F (1) Education Date: Mar 15, 2019 Assessment: Followup/Discharge Learning Barriers: ready Knowledge Test Score: 9 Stages of change: maintenance Family Support: Yes Tobacco use: No Tobacco Use Smokeless tobacco: No Intervention Referral to smoking cessation: No Individual education and couns: No Tobacco Adjunct: No Education class schedule given: No Attended education classes: No Education: CAD, Risk factors, med compliance, cardiac A&P, Angina S/S, Sexuality Education Goals Met: Yes (PATIENT CONTINUES TO HAVE VERY POSITIVE ATTITUDE TOWARD EXERCISE AND EDUCATION, GOOD ATTENDENCE) Target Goals Complete cessation of tobacco use (1). Psychosocial Date: Mar 15, 2019 Assessment: Followup/Discharge Psych Test (Initial/Discharge) Tool Used: Other (PHW-9) Score: 1 (MINIMAL DEPRESSION) Stages of change: maintenance Intervention Physician Consult: No Physician Referral: No Med Change: No Stress Management Class: No Uses Stress Management Skills: Yes Education Education: Coping Techniques, S/S depression, Relaxation Techniques Education Goals Met: Yes Target Goal Assess presence or absence of depression using a valid screening tool (1). Maximize coping skills (2). Positive support system (2). Patient/Program Goal Preventative Medication: Yes Clopidogrel, Yes Beta blockade, Yes Statin/OTR lipid Lowering Fall Risk Assess: Yes (NOT A FALL RISK) Provider Assessment Session Number: 23 Provider Assessment: No changes (PATIENT CONTINUED TO HAVE EXCELLENT ATTENDENCE, VERY RECEPTIVE TO EDUCATION) Lonny Stanley RN Mar 15, 2019 16:33
== END 2019-03-18 ==
LOC: M CR 08:48
PROVIDERS: ATTEND Internal Medicine Cardiovascular Disease
DX: Z95.1 Presence of aortocoronary bypass graft (principal)

== ENCOUNTER → 2019-05-09 | Outpatient (REF) | payer MEDICARE, OTHER ==
[2019-05-09 12:12] LABS: ALBUMIN 4.2 GM/DL (3.2-5.2); ALT/SGPT 27 U/L (12-78); BILIRUBIN,TOTAL 0.5 MG/DL (0.2-1.0); BLOOD UREA NITROGEN 19 MG/DL (7-18); CALCIUM LEVEL 9.7 MG/DL (8.8-10.2); CARBON DIOXIDE LEVEL 26 MEQ/L (21-32); CHLORIDE LEVEL 104 MEQ/L (98-107); CHOLESTEROL LEVEL 135 MG/DL (<200); CHOLESTEROL RISK RATIO 3.292 (<5); CREATININE FOR GFR 0.96 MG/DL (0.70-1.30); GLOMERULAR FILTRATION RATE > 60.0 (>49); GLUCOSE, FASTING 156 MG/DL (70-100); HDL CHOLESTEROL 41 MG/DL (>40); LDL CHOLESTEROL 63 MG/DL (<100); NON-HDL-C 94 MG/DL; POTASSIUM SERUM 4.4 MEQ/L (3.5-5.1); SODIUM LEVEL 138 MEQ/L (136-145); TRIGLYCERIDES LEVEL 154 MG/DL (<150)
[2019-05-09 12:16] LABS: CREATININE, URINE 81.4 MG/DL
[2019-05-09 13:59] LABS: HEMOGLOBIN A1c 7.5 %
== END ==
LOC: M SFHCCLAY 08:34
PROVIDERS: ATTEND Family Medicine
DX: I10 Essential (primary) hypertension (principal); E11.21 Type 2 diabetes mellitus with diabetic nephropathy; Z95.1 Presence of aortocoronary bypass graft

== ENCOUNTER → 2019-08-09 | Outpatient (REF) | payer MEDICARE, OTHER ==
[~2019-08-09] MED LIST changes: +OMEP1CAP73 PO; -OMEP20CA4 PO
[2019-08-09 11:55] LABS: BASO # 0.1 10^3/uL (0.0-0.2); BASO % 0.9 % (0.0-1.0); EOS # 0.1 10^3/uL (0.0-0.5); EOS % 2.1 % (0.0-3.0); HEMATOCRIT 47.8 % (42.0-52.0); HEMOGLOBIN 15.7 g/dl (13.5-17.5); LYMPH # 1.9 10^3/uL (1.5-5.0); LYMPH % 28.7 % (24.0-44.0); MEAN CORPUSCULAR HEMOGLOBIN 29.7 pg (27.0-33.0); MEAN CORPUSCULAR HGB CONC 32.8 g/dl (32.0-36.5); MEAN CORPUSCULAR VOLUME 90.4 fl (80.0-96.0); MONO # 0.5 10^3/uL (0.0-0.8); MONO % 7.9 % (0.0-5.0); NEUTROPHILS % 59.7 % (36.0-66.0); PLATELET COUNT, AUTOMATED 137 10^3/uL (150-450); RED BLOOD COUNT 5.29 10^6/uL (4.30-6.10); WHITE BLOOD COUNT 6.7 10^3/uL (4.0-10.0)
[2019-08-09 11:58] LABS: ALBUMIN 4.7 GM/DL (3.2-5.2); BLOOD UREA NITROGEN 20 MG/DL (7-18); CARBON DIOXIDE LEVEL 28 MEQ/L (21-32); CHLORIDE LEVEL 104 MEQ/L (98-107); CREATININE FOR GFR 1.06 MG/DL (0.70-1.30); GLOMERULAR FILTRATION RATE > 60.0 (>49); GLUCOSE, FASTING 192 MG/DL (70-100); PHOSPHORUS LEVEL 3.8 MG/DL (2.5-4.9); POTASSIUM SERUM 4.3 MEQ/L (3.5-5.1); SODIUM LEVEL 137 MEQ/L (136-145)
== END ==
LOC: M LABDRAWC 11:20
PROVIDERS: ATTEND Internal Medicine Cardiovascular Disease
DX: I20.0 Unstable angina (principal); I10 Essential (primary) hypertension; I25.10 Atherosclerotic heart disease of native coronary artery without angina pectoris; R94.31 Abnormal electrocardiogram [ECG] [EKG]

== ENCOUNTER → 2019-09-27 | Outpatient (REF) | payer MEDICARE, OTHER ==
[~2019-09-27] MED LIST changes: +CYCL-707 PO; -CYCL10TA PO
[2019-09-27 11:23] LABS: HEMATOCRIT 48.3 % (42.0-52.0); HEMOGLOBIN 15.8 g/dl (13.5-17.5); MEAN CORPUSCULAR HEMOGLOBIN 29.9 pg (27.0-33.0); MEAN CORPUSCULAR HGB CONC 32.7 g/dl (32.0-36.5); MEAN CORPUSCULAR VOLUME 91.5 fl (80.0-96.0); PLATELET COUNT, AUTOMATED 128 10^3/uL (150-450); RED BLOOD COUNT 5.28 10^6/uL (4.30-6.10); WHITE BLOOD COUNT 5.7 10^3/uL (4.0-10.0)
[2019-09-27 11:26] LABS: BLOOD UREA NITROGEN 21 MG/DL (7-18); CALCIUM LEVEL 9.5 MG/DL (8.8-10.2); CARBON DIOXIDE LEVEL 28 MEQ/L (21-32); CHLORIDE LEVEL 103 MEQ/L (98-107); CREATININE FOR GFR 1.03 MG/DL (0.70-1.30); GLOMERULAR FILTRATION RATE > 60.0 (>49); GLUCOSE, FASTING 175 MG/DL (70-100); POTASSIUM SERUM 4.3 MEQ/L (3.5-5.1); SODIUM LEVEL 139 MEQ/L (136-145)
[2019-09-27 11:44] LABS: HEMOGLOBIN A1c 8.3 %
== END ==
LOC: M SFHCCLAY 08:27
PROVIDERS: ATTEND Family Medicine
DX: E11.40 Type 2 diabetes mellitus with diabetic neuropathy, unspecified (principal); Z95.1 Presence of aortocoronary bypass graft
CPT/HCPCS: 80048; 83036; 85027; G0463

== ENCOUNTER → 2019-10-09 | Outpatient (REF) | payer MEDICARE, OTHER ==
[2019-10-10 12:37] LABS: APPEARANCE, URINE CLOUDY (CLEAR); BACTERIA, URINE AUTO NEGATIVE (NEGATIVE); BILIRUBIN, URINE AUTO NEGATIVE (NEGATIVE); BLOOD, URINE BLOOD 3+ (NEGATIVE); COLOR, URINE YELLOW (YELLOW); GLUCOSE, URINE (UA) AUTO 3+ mg/dL (NEGATIVE); KETONE, URINE AUTO NEGATIVE (NEGATIVE); LEUKOCYTE ESTERASE, URINE AUTO NEGATIVE (NEGATIVE); NITRITE, URINE AUTO NEGATIVE (NEGATIVE); PROTEIN, URINE AUTO 1+ mg/dL (NEGATIVE); RBC, URINE AUTO TNTC /HPF (0-3); SPECIFIC GRAVITY URINE AUTO 1.028 (1.002-1.035); SQUAMOUS EPITHELIAL CELL UR AU 0 /HPF (0-6); UROBILINOGEN, URINE AUTO 0.2 mg/dL (0.0-2.0); WBC, URINE AUTO 0 /HPF (0-3)
== END ==
LOC: M SFHCCAPE 11:49
PROVIDERS: ATTEND Physician Assistant
DX: R31.9 Hematuria, unspecified (principal)

== ENCOUNTER → 2019-10-14 | Outpatient (REF) | payer MEDICARE, OTHER ==
[2019-10-14 15:11] LABS: APPEARANCE, URINE CLEAR (CLEAR); BACTERIA, URINE AUTO NEGATIVE (NEGATIVE); BILIRUBIN, URINE AUTO NEGATIVE (NEGATIVE); BLOOD, URINE BLOOD 2+ (NEGATIVE); COLOR, URINE YELLOW (YELLOW); GLUCOSE, URINE (UA) AUTO 3+ mg/dL (NEGATIVE); KETONE, URINE AUTO TRACE mg/dL (NEGATIVE); LEUKOCYTE ESTERASE, URINE AUTO NEGATIVE (NEGATIVE); NITRITE, URINE AUTO NEGATIVE (NEGATIVE); PROTEIN, URINE AUTO NEGATIVE (NEGATIVE); RBC, URINE AUTO 38 /HPF (0-3); SPECIFIC GRAVITY URINE AUTO 1.029 (1.002-1.035); SQUAMOUS EPITHELIAL CELL UR AU 0 /HPF (0-6); UROBILINOGEN, URINE AUTO 0.2 mg/dL (0.0-2.0); WBC, URINE AUTO 1 /HPF (0-3)
== END ==
LOC: M SMT 14:58
PROVIDERS: ATTEND Nurse Practitioner Women's Health
DX: R31.0 Gross hematuria (principal)
CPT/HCPCS: 81001; 88108; G0463

== ENCOUNTER → 2019-10-17 | Outpatient (REF) | payer MEDICARE, OTHER | LOC: M LABSMT 13:15 | PROVIDERS: ATTEND Nurse Practitioner Women's Health | DX: R31.0 Gross hematuria (principal); Z12.5 Encounter for screening for malignant neoplasm of prostate ==

== ENCOUNTER → 2020-04-15 | Outpatient (CLI) | payer MEDICARE, OTHER ==
[~2020-04-15] MED LIST changes: -ASPI81TA85 PO; +ASPI81TA86 PO; +ISOVUE-370 76% 100ML VIAL As Ordered ONE
--- NOTE | 2020-04-15 10:14 | REP ---
INDICATION: GROSS HEMATURIA, RENAL CYST. COMPARISON: 03/04/2011. TECHNIQUE: CT abdomen and pelvis performed without IV contrast. CT abdomen pelvis performed with IV contrast as well, following intravenous administration of 100 cc of Isovue 370. Sagittal, coronal and 3D MIP reconstruction images are performed. FINDINGS: Lung bases: Mild fibrotic changes. Liver: Normal Gallbladder: Unremarkable. Spleen: Normal. Adrenals: Normal. Pancreas: Normal. Kidneys: There is a punctate calculus in the mid right kidney about 2 mm in diameter. A non suspicious cyst is seen in the anterior mid right kidney measuring about 2.2 cm in diameter. There are 2 adjacent parapelvic cysts in the mid left kidney each measuring about 2 cm in diameter. Small and large bowel: There is sigmoid diverticulosis without evidence of acute diverticulitis.. Oval soft tissue mass lateral to the body of the stomach demonstrates lobulated margins measuring about 6 cm in maximum diameter. This is unchanged since the 2011 CT exam. Free fluid: None. Adenopathy: None. Appendix: Not inflamed. Osseous structures: Degenerative changes of the spine without compression deformity. Right hip prosthesis, somewhat limiting evaluation of right pelvic structures inferiorly due to beam hardening artifact. Pelvis: No bladder calculus and no bladder wall thickening. Enlarged prostate is noted impressing upon the base of the bladder. There is a mild to moderate left inguinal hernia containing fat. IMPRESSION: There is a punctate calculus in the mid right kidney about 2 mm in diameter. A non suspicious cyst is seen in the anterior mid right kidney measuring about 2.2 cm in diameter. There are 2 adjacent parapelvic cysts in the mid left kidney each measuring about 2 cm in diameter. Oval soft tissue mass lateral to the body of the stomach demonstrates lobulated margins measuring about 6 cm in maximum diameter. This is unchanged since the 2011 CT exam and is therefore considered benign. Enlarged prostate is noted impressing upon the base of the bladder. There is a mild to moderate left inguinal hernia containing fat. <Electronically signed by Zaheer Mitchell > 04/15/20 [id number]
== END ==
LOC: M RAD 08:45
PROVIDERS: ATTEND Nurse Practitioner Women's Health
DX: R31.0 Gross hematuria (principal)
CPT/HCPCS: 74178; Q9967

== ENCOUNTER → 2020-04-20 | Outpatient (REF) | payer MEDICARE, OTHER ==
[~2020-04-20] MED LIST changes: -ISOVUE-370 76% 100ML VIAL As Ordered ONE
[2020-04-20 17:49] LABS: APPEARANCE, URINE CLEAR (CLEAR); BACTERIA, URINE AUTO NEGATIVE (NEGATIVE); BILIRUBIN, URINE AUTO NEGATIVE (NEGATIVE); BLOOD, URINE BLOOD NEGATIVE (NEGATIVE); COLOR, URINE YELLOW (YELLOW); GLUCOSE, URINE (UA) AUTO 3+ mg/dL (NEGATIVE); KETONE, URINE AUTO TRACE mg/dL (NEGATIVE); LEUKOCYTE ESTERASE, URINE AUTO NEGATIVE (NEGATIVE); MUCUS, URINE SMALL (NEGATIVE); NITRITE, URINE AUTO NEGATIVE (NEGATIVE); PROTEIN, URINE AUTO NEGATIVE (NEGATIVE); RBC, URINE AUTO 0 /HPF (0-3); SQUAMOUS EPITHELIAL CELL UR AU 0 /HPF (0-6); UROBILINOGEN, URINE AUTO 0.2 mg/dL (0.0-2.0); WBC, URINE AUTO 0 /HPF (0-3)
== END ==
LOC: M SMT 16:55
PROVIDERS: ATTEND Nurse Practitioner Women's Health
DX: R31.9 Hematuria, unspecified (principal)
CPT/HCPCS: 81001; 87086; G0463

== ENCOUNTER → 2020-06-30 | Outpatient (REF) | payer MEDICARE, OTHER ==
[2020-06-30 13:49] LABS: MAU/CREAT RATIO 182.2 MCG/MG (0.0-30.0)
[2020-06-30 13:50] LABS: BLOOD UREA NITROGEN 18 MG/DL (7-18); CARBON DIOXIDE LEVEL 29 MEQ/L (21-32); CHLORIDE LEVEL 105 MEQ/L (98-107); CREATININE FOR GFR 1.14 MG/DL (0.70-1.30); GLOMERULAR FILTRATION RATE > 60.0 (>49); GLUCOSE, FASTING 185 MG/DL (70-100); POTASSIUM SERUM 4.8 MEQ/L (3.5-5.1); SODIUM LEVEL 139 MEQ/L (136-145)
[2020-06-30 13:51] LABS: ALBUMIN 4.7 GM/DL (3.2-5.2); ALT/SGPT 30 U/L (12-78); BILIRUBIN,TOTAL 0.4 MG/DL (0.2-1.0); CHOLESTEROL LEVEL 150 MG/DL (<200); CHOLESTEROL RISK RATIO 3.947 (<5); HDL CHOLESTEROL 38 MG/DL (>40); LDL CHOLESTEROL 65 MG/DL (<100); NON-HDL-C 112 MG/DL; TOTAL PROTEIN 7.2 GM/DL (6.4-8.2); TRIGLYCERIDES LEVEL 236 MG/DL (<150)
[2020-06-30 15:53] LABS: HEMOGLOBIN A1c 8.9 %
== END ==
LOC: M SFHCCLAY 07:56
PROVIDERS: ATTEND Family Medicine
DX: I10 Essential (primary) hypertension (principal); E11.21 Type 2 diabetes mellitus with diabetic nephropathy

== ENCOUNTER → 2020-08-12 | Outpatient (REF) | payer MEDICARE, OTHER ==
[~2020-08-12] MED LIST changes: -LISI-538 PO; +LISI20TA33 PO
[2020-08-12 12:01] LABS: MEAN CORPUSCULAR HEMOGLOBIN 29.5 pg (27.0-33.0); MEAN CORPUSCULAR HGB CONC 32.7 g/dl (32.0-36.5); MEAN CORPUSCULAR VOLUME 90.4 fl (80.0-96.0); PLATELET COUNT, AUTOMATED 153 10^3/uL (150-450); RED BLOOD COUNT 5.42 10^6/uL (4.30-6.10); WHITE BLOOD COUNT 7.2 10^3/uL (4.0-10.0)
[2020-08-12 12:09] LABS: INR 0.93; PARTIAL THROMBOPLASTIN TIME 29.7 SECONDS (24.2-38.5); PROTHROMBIN TIME 12.7 SECONDS (12.5-14.3)
[2020-08-12 12:27] LABS: ALBUMIN 4.9 GM/DL (3.2-5.2); ALT/SGPT 32 U/L (12-78); BILIRUBIN,TOTAL 0.3 MG/DL (0.2-1.0); BLOOD UREA NITROGEN 26 MG/DL (7-18); CALCIUM LEVEL 9.6 MG/DL (8.8-10.2); CARBON DIOXIDE LEVEL 28 MEQ/L (21-32); CHLORIDE LEVEL 104 MEQ/L (98-107); CREATININE FOR GFR 1.13 MG/DL (0.70-1.30); GLOMERULAR FILTRATION RATE > 60.0 (>49); GLUCOSE, FASTING 143 MG/DL (70-100); POTASSIUM SERUM 4.2 MEQ/L (3.5-5.1); SODIUM LEVEL 140 MEQ/L (136-145); TOTAL PROTEIN 7.7 GM/DL (6.4-8.2)
== END ==
LOC: M SFHCCLAY 07:08
PROVIDERS: ATTEND Family Medicine
DX: I10 Essential (primary) hypertension (principal); E11.9 Type 2 diabetes mellitus without complications

== ENCOUNTER → 2020-08-12 | Outpatient (CLI) | payer MEDICARE, OTHER ==
--- NOTE | 2020-08-12 10:01 | REP ---
INDICATION: R11.9 DM I10. ESSENTIAL HTN. COMPARISON: Comparison chest x-ray July 21, 2015. TECHNIQUE: Two views.. FINDINGS: The lungs are well inflated and free of infiltrate. The pleural angles are sharp. The heart size is normal. Pulmonary vasculature is not increased. No significant bony abnormality is seen. Coronary artery vascular calcification and/or stent material is visible unchanged. IMPRESSION: No active cardiopulmonary disease seen.. <Electronically signed by Gelacio Mark > 08/12/20 [id number]
== END ==
LOC: M CLY 07:30
PROVIDERS: ATTEND Family Medicine
DX: I10 Essential (primary) hypertension (principal); E11.9 Type 2 diabetes mellitus without complications; Z79.899 Other long term (current) drug therapy
CPT/HCPCS: 71046; 80053; 85027; 85610; 85730; 87086; G0463

== ENCOUNTER → 2020-10-02 | Outpatient (REF) | payer MEDICARE, OTHER ==
[2020-10-02 12:37] LABS: BLOOD UREA NITROGEN 19 MG/DL (7-18); CALCIUM LEVEL 9.4 MG/DL (8.8-10.2); CARBON DIOXIDE LEVEL 27 MEQ/L (21-32); CHLORIDE LEVEL 108 MEQ/L (98-107); CREATININE FOR GFR 0.93 MG/DL (0.70-1.30); GLOMERULAR FILTRATION RATE > 60.0 (>49); GLUCOSE, FASTING 137 MG/DL (70-100); POTASSIUM SERUM 4.5 MEQ/L (3.5-5.1); SODIUM LEVEL 139 MEQ/L (136-145)
[2020-10-02 13:57] LABS: HEMOGLOBIN A1c 6.3 %
== END ==
LOC: M SFHCCLAY 07:26
PROVIDERS: ATTEND Family Medicine
DX: E11.21 Type 2 diabetes mellitus with diabetic nephropathy (principal)
CPT/HCPCS: 80048; 83036; G0463

== ENCOUNTER → 2021-01-01 | Outpatient (REF) | payer MEDICARE, OTHER ==
[2021-01-01 13:08] LABS: HEMOGLOBIN A1c 7.9 %
[2021-01-01 13:31] LABS: BLOOD UREA NITROGEN 20 MG/DL (7-18); CALCIUM LEVEL 9.1 MG/DL (8.8-10.2); CARBON DIOXIDE LEVEL 28 MEQ/L (21-32); CHLORIDE LEVEL 106 MEQ/L (98-107); CHOLESTEROL LEVEL 118 MG/DL (<200); CHOLESTEROL RISK RATIO 3.189 (<5); CREATININE FOR GFR 0.95 MG/DL (0.70-1.30); GLOMERULAR FILTRATION RATE > 60.0 (>49); GLUCOSE, FASTING 139 MG/DL (70-100); HDL CHOLESTEROL 37 MG/DL (>40); LDL CHOLESTEROL 49 MG/DL (<100); NON-HDL-C 81 MG/DL; POTASSIUM SERUM 4.6 MEQ/L (3.5-5.1); SODIUM LEVEL 136 MEQ/L (136-145); TRIGLYCERIDES LEVEL 158 MG/DL (<150)
== END ==
LOC: M SFHCCLAY 08:18
PROVIDERS: ATTEND Family Medicine
DX: E11.40 Type 2 diabetes mellitus with diabetic neuropathy, unspecified (principal); K40.90 Unilateral inguinal hernia, without obstruction or gangrene, not specified as recurrent; Z95.1 Presence of aortocoronary bypass graft
CPT/HCPCS: 80048; 80061; 83036; G0463

== ENCOUNTER → 2021-04-02 | Outpatient (REF) | payer MEDICARE, OTHER ==
[2021-04-02 12:49] LABS: BLOOD UREA NITROGEN 13 MG/DL (7-18); CALCIUM LEVEL 9.1 MG/DL (8.8-10.2); CARBON DIOXIDE LEVEL 29 MEQ/L (21-32); CHLORIDE LEVEL 107 MEQ/L (98-107); CREATININE FOR GFR 1.02 MG/DL (0.70-1.30); GLOMERULAR FILTRATION RATE > 60.0 (>49); GLUCOSE, FASTING 114 MG/DL (70-100); POTASSIUM SERUM 4.4 MEQ/L (3.5-5.1); SODIUM LEVEL 141 MEQ/L (136-145)
[2021-04-02 13:24] LABS: HEMOGLOBIN A1c 6.4 %
== END ==
LOC: M SFHCCLAY 08:41
PROVIDERS: ATTEND Family Medicine
DX: E11.21 Type 2 diabetes mellitus with diabetic nephropathy (principal)

== ENCOUNTER → 2021-04-21 | Outpatient (CLI) | payer MEDICARE, OTHER ==
--- NOTE | 2021-04-21 13:23 | REP ---
INDICATION: RENAL CYST. COMPARISON: Prior right upper quadrant ultrasound of 05/04/2017 showed 2 complex right renal cysts felt to be unchanged from 2011 TECHNIQUE: Real-time sonographic evaluation of the kidneys with Doppler FINDINGS: Multiple ultrasonographic images of the right kidney show the right kidney to measure 12 x 7.5 x 5.9 cm.. The renal cortical echotexture is unremarkable. There are no masses. There is good corticomedullary differentiation. There is no hydronephrosis. There are no perinephric fluid collections. There is a slightly complex appearing 1.8 cm sized cyst in the upper pole. This appears unchanged. Multiple ultrasonographic images of the left kidney show the left kidney to measure 13.4 x 6 x 5.9 cm. The renal cortical echotexture is unremarkable. There are no masses. There is good corticomedullary differentiation.. There are no perinephric fluid collections. Possible mild caliceal fullness of the lower pole The prostate gland appears enlarged. IMPRESSION: 1. Unchanged right kidney as described above. 2. Left kidney as described above. <Electronically signed by Russel Bhatt > 04/21/21 [id number]
== END ==
LOC: M RAD 11:05
PROVIDERS: ATTEND Nurse Practitioner Women's Health
DX: N28.1 Cyst of kidney, acquired (principal)

== ENCOUNTER → 2021-04-27 | Outpatient (REF) | payer MEDICARE, OTHER | LOC: M LABSMT 15:48 | PROVIDERS: ATTEND Urology | DX: Z12.5 Encounter for screening for malignant neoplasm of prostate (principal) | CPT/HCPCS: G0103; G0463 ==

== ENCOUNTER → 2021-10-01 | Outpatient (REF) | payer MEDICARE, OTHER ==
[2021-10-01 11:32] LABS: HEMATOCRIT 46.2 % (42.0-52.0); HEMOGLOBIN 15.8 g/dl (13.5-17.5); MEAN CORPUSCULAR HEMOGLOBIN 30.8 pg (27.0-33.0); MEAN CORPUSCULAR HGB CONC 34.2 g/dl (32.0-36.5); MEAN CORPUSCULAR VOLUME 90.1 fl (80.0-96.0); PLATELET COUNT, AUTOMATED 145 10^3/uL (150-450); RED BLOOD COUNT 5.13 10^6/uL (4.30-6.10)
[2021-10-01 11:51] LABS: APPEARANCE, URINE CLEAR (CLEAR); BACTERIA, URINE AUTO NEGATIVE (NEGATIVE); BILIRUBIN, URINE AUTO NEGATIVE (NEGATIVE); BLOOD, URINE BLOOD NEGATIVE (NEGATIVE); COLOR, URINE YELLOW (YELLOW); GLUCOSE, URINE (UA) AUTO 3+ mg/dL (NEGATIVE); KETONE, URINE AUTO TRACE mg/dL (NEGATIVE); LEUKOCYTE ESTERASE, URINE AUTO NEGATIVE (NEGATIVE); MUCUS, URINE SMALL (NEGATIVE); NITRITE, URINE AUTO NEGATIVE (NEGATIVE); PROTEIN, URINE AUTO 2+ mg/dL (NEGATIVE); RBC, URINE AUTO 0 /HPF (0-3); SQUAMOUS EPITHELIAL CELL UR AU 0 /HPF (0-6); WBC, URINE AUTO 1 /HPF (0-3)
[2021-10-01 11:59] LABS: HEMOGLOBIN A1c 7.4 %
[2021-10-01 12:07] LABS: ALBUMIN 4.4 GM/DL (3.2-5.2); ALT/SGPT 37 U/L (12-78); BILIRUBIN,TOTAL 0.5 MG/DL (0.2-1.0); BLOOD UREA NITROGEN 20 MG/DL (7-18); CALCIUM LEVEL 9.5 MG/DL (8.8-10.2); CARBON DIOXIDE LEVEL 27 MEQ/L (21-32); CHLORIDE LEVEL 106 MEQ/L (98-107); CHOLESTEROL LEVEL 120 MG/DL (<200); CHOLESTEROL RISK RATIO 3.243 (<5); CREATININE FOR GFR 1.02 MG/DL (0.70-1.30); GLOMERULAR FILTRATION RATE > 60.0 (>49); GLUCOSE, FASTING 149 MG/DL (70-100); HDL CHOLESTEROL 37 MG/DL (>40); LDL CHOLESTEROL 36 MG/DL (<100); NON-HDL-C 83 MG/DL; POTASSIUM SERUM 4.5 MEQ/L (3.5-5.1); SODIUM LEVEL 139 MEQ/L (136-145); TRIGLYCERIDES LEVEL 235 MG/DL (<150)
== END ==
LOC: M SFHCCLAY 08:00
PROVIDERS: ATTEND Family Medicine
DX: E11.40 Type 2 diabetes mellitus with diabetic neuropathy, unspecified (principal); I10 Essential (primary) hypertension; N52.9 Male erectile dysfunction, unspecified; Z95.1 Presence of aortocoronary bypass graft

== ENCOUNTER → 2021-11-25 | Outpatient (REF) | payer MEDICARE, OTHER ==
[~2021-11-25] MED LIST changes: +ASPI1CHW3 PO; +BASA100I SQ; +SEMA14TA2 PO; +TAMS1CAP17 PO
[2021-11-25 11:43] LABS: HEMATOCRIT 44.3 % (42.0-52.0); HEMOGLOBIN 15.1 g/dl (13.5-17.5); MEAN CORPUSCULAR HEMOGLOBIN 30.7 pg (27.0-33.0); MEAN CORPUSCULAR HGB CONC 34.1 g/dl (32.0-36.5); PLATELET COUNT, AUTOMATED 137 10^3/uL (150-450); RED BLOOD COUNT 4.92 10^6/uL (4.30-6.10); WHITE BLOOD COUNT 6.5 10^3/uL (4.0-10.0)
[2021-11-25 12:27] LABS: BLOOD UREA NITROGEN 16 MG/DL (7-18); CALCIUM LEVEL 9.2 MG/DL (8.8-10.2); CARBON DIOXIDE LEVEL 29 MEQ/L (21-32); CHLORIDE LEVEL 105 MEQ/L (98-107); CREATININE FOR GFR 1.01 MG/DL (0.70-1.30); GLOMERULAR FILTRATION RATE > 60.0 (>49); GLUCOSE, FASTING 151 MG/DL (70-100); POTASSIUM SERUM 4.3 MEQ/L (3.5-5.1); SODIUM LEVEL 138 MEQ/L (136-145)
== END ==
LOC: M SFHCCLAY 07:33
PROVIDERS: ATTEND Family Medicine
DX: E11.9 Type 2 diabetes mellitus without complications (principal)

== ENCOUNTER → 2021-11-25 | Outpatient (CLI) | payer MEDICARE, OTHER | LOC: M LABSMTC 11:15 | PROVIDERS: ATTEND Anesthesiology | DX: Z01.818 Encounter for other preprocedural examination (principal); Z11.52 Encounter for screening for COVID-19; E11.9 Type 2 diabetes mellitus without complications ==

== ENCOUNTER → 2021-11-29 | Outpatient (CLI) | payer MEDICARE, OTHER ==
[~2021-11-29] MED LIST changes: +HYDR-3715 PO
== END ==
LOC: M CLY 08:36
PROVIDERS: ATTEND Family Medicine
DX: M79.602 Pain in left arm (principal)

== ENCOUNTER 2021-11-30 08:46 | Day surgery (SDC) | payer MEDICARE, OTHER ==
[~2021-11-30] VITALS: Ht 177.8 cm; Wt 93.4 kg
[~2021-11-30 08:46] MED LIST changes: -HYDR-3715 PO; +LIDOCAINE 1% SDV 5ML VIAL SC PRN; +LR 1,000 ML IV SCH
[2021-11-30] MEDS ORDERED: INSULIN LISPRO (NovoLOG) PER UNIT SC PRN (10:05)
[2021-11-30] MEDS ORDERED: BUPIVACAINE HCL 0.25% 30ML VIAL As Ordered ONE (10:44)
[2021-11-30] MEDS ORDERED: HYDR-3715 PO (11:23)
[2021-11-30] MEDS ORDERED: ROCURONIUM BROMIDE 50 MG/5 ML VIAL As Ordered ONE ×2 (11:39→12:33)
[2021-11-30] MEDS ORDERED: propofoL 200 MG/20 ML VIAL As Ordered ONE (11:39)
[2021-11-30] MEDS ORDERED: LIDOCAINE 2% 100MG/5ML SDV (FOR ANES.) As Ordered ONE (11:39)
[2021-11-30] MEDS ORDERED: MIDAZOLAM INJ 2MG/2ML VIAL (J2250 PER 1MG) As Ordered ONE (11:39)
[2021-11-30] MEDS ORDERED: ONDANSETRON 4MG/2ML VIAL As Ordered ONE (11:39)
[2021-11-30] MEDS ORDERED: dexameTHASONE 4 MG/ML 1ML VIAL (J1100 PER 1MG) As Ordered ONE (11:39)
[2021-11-30] MEDS ORDERED: SUGAMMADEX SODIUM 500 MG/5 ML VIAL (BRIDION) As Ordered ONE (11:39)
[2021-11-30] MEDS ORDERED: KETOROLAC 60MG 2ML VIAL As Ordered ONE (11:39)
[2021-11-30] MEDS ORDERED: fentaNYL 250 MCG/5 ML INJECTION As Ordered ONE (11:39)
[2021-11-30] MEDS ORDERED: ACETAMINOPHEN 1000MG 100ML IV BTL (OFIRMEV) (J0131 PER 10MG) As Ordered ONE (11:50)
[2021-11-30] MEDS ORDERED: ePHEDrine SULFATE 25 MG/5 ML(5MG/ML) SYRINGE As Ordered ONE (13:26)
[2021-11-30] MEDS ORDERED: LR 1,000 ML IV SCH (13:40)
[2021-11-30] MEDS ORDERED: ONDANSETRON 4MG/2ML VIAL IV PRN (13:40)
[2021-11-30] MEDS ORDERED: oxyCODONE 5MG TAB PO PRN (13:40)
[2021-11-30] MEDS ORDERED: PROMETHAZINE 25MG/ML 1ML VIAL IV PRN (13:40)
[2021-11-30] MEDS ORDERED: fentaNYL 100 MCG/2 ML INJECTION IV PRN (13:40)
[2021-11-30] MEDS ORDERED: HYDROMORPHONE HCL 0.5 MG/ 0.5 ML SYRINGE (J1170 PER 1) IV PRN (13:40)
[2021-11-30] MEDS ORDERED: NORCO, ANEXSIA 5/325MG TABLET (HYDROcodone/ACETAMINOPHEN) PO PRN (14:45)
[2021-11-30] MEDS ORDERED: ACETAMINOPHEN TAB 650MG DOSE (2X325MG) PO PRN (14:45)
[2021-11-30 15:50] VITALS: BP 162/81
== END 2021-11-30 15:59 | disposition home or self-care (01) ==
LOC: M SDC 08:46
PROVIDERS: ATTEND Surgery
DX: K40.30 Unilateral inguinal hernia, with obstruction, without gangrene, not specified as recurrent (principal); I10 Essential (primary) hypertension; E78.00 Pure hypercholesterolemia, unspecified; E11.9 Type 2 diabetes mellitus without complications; K57.92 Diverticulitis of intestine, part unspecified, without perforation or abscess without bleeding; Z98.61 Coronary angioplasty status; N40.0 Benign prostatic hyperplasia without lower urinary tract symptoms; F41.9 Anxiety disorder, unspecified; Z88.5 Allergy status to narcotic agent; Z88.8 Allergy status to other drugs, medicaments and biological substances; Z79.82 Long term (current) use of aspirin; Z79.84 Long term (current) use of oral hypoglycemic drugs; Z79.02 Long term (current) use of antithrombotics/antiplatelets; Z79.899 Other long term (current) drug therapy
CPT/HCPCS: 49650; C1781; J0131; J1100; J1815; J1885; J2250; J2405; J3010; S2900

== ENCOUNTER → 2022-03-10 | Outpatient (REF) | payer MEDICARE, OTHER ==
[~2022-03-10] MED LIST changes: +HYDR-3715 PO; -LIDOCAINE 1% SDV 5ML VIAL SC PRN; -LR 1,000 ML IV SCH
[2022-03-10 12:53] LABS: BLOOD UREA NITROGEN 12 MG/DL (7-18); CALCIUM LEVEL 9.3 MG/DL (8.8-10.2); CARBON DIOXIDE LEVEL 30 MEQ/L (21-32); CHLORIDE LEVEL 103 MEQ/L (98-107); CREATININE FOR GFR 0.88 MG/DL (0.70-1.30); GLOMERULAR FILTRATION RATE > 60.0 (>49); GLUCOSE, FASTING 192 MG/DL (70-100); POTASSIUM SERUM 4.3 MEQ/L (3.5-5.1); SODIUM LEVEL 136 MEQ/L (136-145)
== END ==
LOC: M SFHCCLAY 07:06
PROVIDERS: ATTEND Family Medicine
DX: N28.1 Cyst of kidney, acquired (principal); E11.9 Type 2 diabetes mellitus without complications

== ENCOUNTER → 2022-03-11 | Outpatient (REF) | payer MEDICARE, OTHER ==
[2022-03-11 12:00] LABS: HEMOGLOBIN A1c 9.3 %
== END ==
LOC: M SFHCCLAY 07:31
PROVIDERS: ATTEND Family Medicine
DX: E11.21 Type 2 diabetes mellitus with diabetic nephropathy (principal)

== ENCOUNTER → 2022-03-16 | Outpatient (CLI) | payer MEDICARE, OTHER ==
[~2022-03-16] MED LIST changes: +ISOVUE-370 76% 100ML VIAL As Ordered ONE
== END ==
LOC: M RAD 15:43
PROVIDERS: ATTEND Urology
DX: N28.1 Cyst of kidney, acquired (principal); R22.2 Localized swelling, mass and lump, trunk
CPT/HCPCS: 74170; Q9967

== ENCOUNTER → 2022-11-08 | Outpatient (REF) | payer MEDICARE, OTHER ==
[~2022-11-08] MED LIST changes: +ASPI-655 PO; -ASPI1CHW3 PO; +CLOP75TA99 PO; -ISOVUE-370 76% 100ML VIAL As Ordered ONE; -PLAV1TAB2 PO
[2022-11-08 12:08] LABS: ALBUMIN 4.1 G/DL (3.2-5.2); ALKALINE PHOSPHATASE 84 U/L (46-116); ALT/SGPT 24 U/L (7.0-40); AST/SGOT 16 U/L (<34); BILIRUBIN,TOTAL 0.6 MG/DL (0.3-1.2); BLOOD UREA NITROGEN 20 MG/DL (9-23); CALCIUM LEVEL 9.4 MG/DL (8.3-10.6); CARBON DIOXIDE LEVEL 28 MMOL/L (20-31); CHLORIDE LEVEL 104 MMOL/L (98-107); CHOLESTEROL LEVEL 110 MG/DL (<200); CHOLESTEROL RISK RATIO 2.83 (<5); CREATININE FOR GFR 0.85 MG/DL (0.70-1.30); GLOMERULAR FILTRATION RATE > 60.0 (>49); GLUCOSE, FASTING 132 MG/DL (74-106); HDL CHOLESTEROL 38.8 MG/DL (>40); NON-HDL-C 71.2 MG/DL; POTASSIUM SERUM 4.6 MMOL/L (3.5-5.1); SODIUM LEVEL 138 MMOL/L (136-145); TOTAL PROTEIN 6.5 G/DL (5.7-8.2); TRIGLYCERIDES LEVEL 141 MG/DL (<150)
[2022-11-08 12:13] LABS: CREATININE, URINE 96.6 MG/DL; MAU/CREAT RATIO 161.4 MCG/MG (0.0-30.0)
[2022-11-08 12:22] LABS: HEMOGLOBIN A1c 7.1 % (4.0-6.0)
== END ==
LOC: M SFHCCLAY 07:42
PROVIDERS: ATTEND Family Medicine
DX: E11.21 Type 2 diabetes mellitus with diabetic nephropathy (principal); I10 Essential (primary) hypertension; E11.40 Type 2 diabetes mellitus with diabetic neuropathy, unspecified; Z95.1 Presence of aortocoronary bypass graft; N52.9 Male erectile dysfunction, unspecified; Z12.5 Encounter for screening for malignant neoplasm of prostate
CPT/HCPCS: 80053; 80061; 82043; 83036; G0103

== ENCOUNTER 2022-12-30 15:03 | Inpatient (IN) | payer MEDICARE, OTHER ==
[~2022-12-30] VITALS: Ht 180.3 cm; Wt 90.9 kg
[2022-12-30] MEDS ORDERED: OXYC-517 PO ×2 (17:17→22:52)
[2022-12-30] MEDS ORDERED: METH-1164 PO (17:17)
[2022-12-30] MEDS ORDERED: LIDO1ADH20 TOP (17:17)
[2022-12-30 17:50] LABS: BASO # 0.1 10^3/uL (0.0-0.2); BASO % 0.5 % (0.0-1.0); EOS # 0.4 10^3/uL (0.0-0.5); HEMOGLOBIN 13.7 g/dl (13.5-17.5); LYMPH # 1.6 10^3/uL (1.5-5.0); LYMPH % 15.4 % (24.0-44.0); MEAN CORPUSCULAR HEMOGLOBIN 30.2 pg (27.0-33.0); MEAN CORPUSCULAR HGB CONC 31.9 g/dl (32.0-36.5); MEAN CORPUSCULAR VOLUME 94.7 fl (80.0-96.0); MONO # 0.6 10^3/uL (0.0-0.8); MONO % 5.8 % (2.0-8.0); NEUTROPHILS # 7.6 10^3/uL (1.5-8.5); NEUTROPHILS % 73.3 % (36.0-66.0); PLATELET COUNT, AUTOMATED 239 10^3/uL (150-450); RED BLOOD COUNT 4.54 10^6/uL (4.30-6.10); WHITE BLOOD COUNT 10.4 10^3/uL (4.0-10.0)
[2022-12-30 17:53] LABS: ALBUMIN 4.1 G/DL (3.2-5.2); BILIRUBIN,DIRECT 0.2 MG/DL (<0.4); BILIRUBIN,TOTAL 0.7 MG/DL (0.3-1.2); TOTAL PROTEIN 6.8 G/DL (5.7-8.2)
[2022-12-30 17:58] LABS: CK-MB VALUE MASS 2.1 NG/ML (<3.6)
[2022-12-30 18:00] LABS: INR 0.91; PROTHROMBIN TIME 12.5 SECONDS (12.5-14.5)
[2022-12-30 18:01] LABS: PARTIAL THROMBOPLASTIN TIME 24.5 SECONDS (24.8-34.2)
[2022-12-30 18:04] LABS: MB/CK RELATIVE INDEX 2.05 (< OR =4)
[2022-12-30] MEDS ORDERED: HYDROMORPHONE HCL 0.5 MG/ 0.5 ML SYRINGE IV ONE (18:25)
[2022-12-30] MEDS ORDERED: ISOVUE-370 76% 100ML VIAL As Ordered ONE (18:25)
[2022-12-30] MEDS ORDERED: NS 1,000 ML IV ONE (20:20)
[2022-12-30 20:46] LABS: THYROID STIMULATING HORMONE 0.802 uIU/ML (0.55-4.78)
[2022-12-30] MEDS: INSULIN LISPRO (NovoLOG) PER UNIT SC SCH (21:00)
[2022-12-30] MEDS ORDERED: lisinopriL 40MG TAB PO SCH (21:00)
[2022-12-30 21:38] LABS: MAGNESIUM LEVEL 2.1 MG/DL (1.8-2.4)
[2022-12-30] MEDS ORDERED: DEXTROSE 50% 50ML SYRINGE IV PRN (21:40)
[2022-12-30] MEDS ORDERED: GLUCOSE 4GM CHEW TABLET PO PRN (21:40)
[2022-12-30] MEDS ORDERED: GLUCAGON INJ 1MG VIAL SC PRN (21:40)
[2022-12-30] MEDS: HYDROMORPHONE HCL 0.5 MG/ 0.5 ML SYRINGE IV PRN (21:43)
[2022-12-30] MEDS ORDERED: LISI40TA4 PO (22:51)
[2022-12-30] MEDS ORDERED: GABA-1171 PO ×2 (22:52)
[2022-12-30] MEDS ORDERED: METH-1165 PO (22:52)
[2022-12-30] MEDS ORDERED: GLUC1KIT SUBQ (22:52)
[2022-12-30] MEDS ORDERED: ROSU40TA4 PO (22:52)
[2022-12-30] MEDS ORDERED: ACET-683 PO (22:52)
[2022-12-30] MEDS ORDERED: JARD1TAB3 PO (22:52)
[2022-12-30] MEDS ORDERED: HOME MED LIST COMPLETE! XX SCH (22:55)
[2022-12-30] MEDS ORDERED: methocarbamoL 750 MG TAB PO PRN (23:00)
[2022-12-30 23:30] LABS: HEMOGLOBIN A1c 6.9 % (4.0-6.0)
[2022-12-30] MEDS: TAMSULOSIN 0.4 MG CAP PO SCH (23:34)
[2022-12-30] MEDS: ASPIRIN 81MG CHEW TABLET PO SCH (23:34)
[2022-12-30] MEDS: ROSUVASTATIN 10 MG TAB (CRESTOR) PO SCH (23:34)
[2022-12-30] MEDS: oxyCODONE 5MG TAB PO PRN (23:35)
[2022-12-30] MEDS: METOPROLOL TART 25 MG TABLET PO SCH (23:36)
[2022-12-30 23:52] LABS: HEMATOCRIT 39.4 % (42.0-52.0); HEMOGLOBIN 12.7 g/dl (13.5-17.5)
[2022-12-31] MEDS: ACETAMINOPHEN TAB 650MG DOSE (2X325MG) PO PRN ×4 (00:20→16:47)
[2022-12-31] MEDS: HYDROMORPHONE HCL 0.5 MG/ 0.5 ML SYRINGE IV PRN ×5 (00:51→23:26)
[2022-12-31] MEDS: oxyCODONE 5MG TAB PO PRN ×3 (05:48→18:37)
[2022-12-31 06:08] LABS: HEMATOCRIT 38.8 % (42.0-52.0); HEMOGLOBIN 12.5 g/dl (13.5-17.5); MEAN CORPUSCULAR HEMOGLOBIN 30.4 pg (27.0-33.0); MEAN CORPUSCULAR HGB CONC 32.2 g/dl (32.0-36.5); MEAN CORPUSCULAR VOLUME 94.4 fl (80.0-96.0); PLATELET COUNT, AUTOMATED 189 10^3/uL (150-450); RED BLOOD COUNT 4.11 10^6/uL (4.30-6.10); WHITE BLOOD COUNT 6.7 10^3/uL (4.0-10.0)
[2022-12-31 06:34] LABS: ALBUMIN 3.6 G/DL (3.2-5.2); ALKALINE PHOSPHATASE 148 U/L (46-116); ALT/SGPT 23 U/L (7.0-40); AST/SGOT 8 U/L (<34); BILIRUBIN,TOTAL 0.6 MG/DL (0.3-1.2); BLOOD UREA NITROGEN 17 MG/DL (9-23); CALCIUM LEVEL 8.9 MG/DL (8.3-10.6); CARBON DIOXIDE LEVEL 26 MMOL/L (20-31); CHLORIDE LEVEL 106 MMOL/L (98-107); CREATININE FOR GFR 0.78 MG/DL (0.70-1.30); GLOMERULAR FILTRATION RATE > 60.0 (>49); GLUCOSE, FASTING 95 MG/DL (74-106); POTASSIUM SERUM 4.2 MMOL/L (3.5-5.1); SODIUM LEVEL 141 MMOL/L (136-145); TOTAL PROTEIN 5.9 G/DL (5.7-8.2)
[2022-12-31] MEDS: INSULIN LISPRO (NovoLOG) PER UNIT SC SCH ×4 (07:30→21:00)
[2022-12-31] MEDS: GABAPENTIN 100 MG CAP PO SCH ×2 (08:28→19:51)
[2022-12-31] MEDS: CLOPIDOGREL 75 MG TAB PO SCH (08:28)
[2022-12-31] MEDS: METOPROLOL TART 25 MG TABLET PO SCH ×2 (08:29→19:51)
[2022-12-31 11:23] VITALS: BP 168/89; O2SAT 97
[2022-12-31 14:00] VITALS: BP 152/74; TEMP 97.9; O2SAT 93
[2022-12-31 19:36] VITALS: BP 159/79; TEMP 97.7; O2SAT 90
[2022-12-31] MEDS: ASPIRIN 81MG CHEW TABLET PO SCH (19:50)
[2022-12-31] MEDS: ROSUVASTATIN 10 MG TAB (CRESTOR) PO SCH (19:50)
[2022-12-31] MEDS: TAMSULOSIN 0.4 MG CAP PO SCH (19:51)
[2022-12-31] MEDS: lisinopriL 40MG TAB PO SCH (19:51)
[2023-01-01] MEDS: HYDROMORPHONE HCL 0.5 MG/ 0.5 ML SYRINGE IV PRN ×6 (02:58→21:34)
[2023-01-01 03:00] VITALS: BP 148/73
[2023-01-01] MEDS: oxyCODONE 5MG TAB PO PRN (04:01)
[2023-01-01] MEDS ORDERED: SENNA 8.6 MG TAB (SENOKOT) PO PRN (05:10)
[2023-01-01 06:00] VITALS: BP 141/76; TEMP 98.2; O2SAT 90
[2023-01-01 06:40] LABS: HEMATOCRIT 41.2 % (42.0-52.0); HEMOGLOBIN 13.3 g/dl (13.5-17.5); MEAN CORPUSCULAR HEMOGLOBIN 30.4 pg (27.0-33.0); MEAN CORPUSCULAR HGB CONC 32.3 g/dl (32.0-36.5); MEAN CORPUSCULAR VOLUME 94.1 fl (80.0-96.0); PLATELET COUNT, AUTOMATED 193 10^3/uL (150-450); RED BLOOD COUNT 4.38 10^6/uL (4.30-6.10); WHITE BLOOD COUNT 7.9 10^3/uL (4.0-10.0)
[2023-01-01] MEDS: MIRALAX *UNIT DOSE* 17GM PACKET PO SCH (06:54)
[2023-01-01] MEDS: DOCUSATE SODIUM 100MG CAPSULE PO SCH ×2 (06:54→20:59)
[2023-01-01 07:10] LABS: BLOOD UREA NITROGEN 15 MG/DL (9-23); CALCIUM LEVEL 9.2 MG/DL (8.3-10.6); CARBON DIOXIDE LEVEL 26 MMOL/L (20-31); CHLORIDE LEVEL 105 MMOL/L (98-107); CREATININE FOR GFR 0.76 MG/DL (0.70-1.30); GLOMERULAR FILTRATION RATE > 60.0 (>49); GLUCOSE, FASTING 150 MG/DL (74-106); POTASSIUM SERUM 4.5 MMOL/L (3.5-5.1); SODIUM LEVEL 141 MMOL/L (136-145)
[2023-01-01] MEDS: INSULIN LISPRO (NovoLOG) PER UNIT SC SCH ×4 (09:08→21:00)
[2023-01-01] MEDS: GABAPENTIN 100 MG CAP PO SCH ×2 (09:09→21:00)
[2023-01-01] MEDS: CLOPIDOGREL 75 MG TAB PO SCH (09:09)
[2023-01-01] MEDS: METOPROLOL TART 25 MG TABLET PO SCH ×2 (09:09→21:01)
[2023-01-01 14:00] VITALS: BP 148/79; TEMP 98.1; O2SAT 90
[2023-01-01 19:59] VITALS: BP 149/79; TEMP 98.1; O2SAT 93
[2023-01-01] MEDS: lisinopriL 40MG TAB PO SCH (21:00)
[2023-01-01] MEDS: TAMSULOSIN 0.4 MG CAP PO SCH (21:01)
[2023-01-01] MEDS: ROSUVASTATIN 10 MG TAB (CRESTOR) PO SCH (21:01)
[2023-01-01] MEDS: ASPIRIN 81MG CHEW TABLET PO SCH (21:01)
[2023-01-01] MEDS: ACETAMINOPHEN TAB 650MG DOSE (2X325MG) PO PRN (21:03)
[2023-01-02 00:41] VITALS: BP 129/74; O2SAT 91
[2023-01-02] MEDS: oxyCODONE 5MG TAB PO PRN ×2 (00:54→11:34)
[2023-01-02 05:42] LABS: VENOUS BASE EXCESS -0.2 (-2.0-2.0); VENOUS HCO3 23.6 MMOL/L (23.0-27.0); VENOUS O2 SATURATION 98.5 % (60.0-80.0); VENOUS PARTIAL PRESSURE CO2 35.9 mmHg (38.0-50.0); VENOUS PH 7.435 UNITS (7.330-7.430); VENOUS STANDARD HCO3 24.3 MMOL/L; VENOUS TOTAL CO2 24.7 MMOL/L (24.0-28.0)
[2023-01-02 05:58] LABS: HEMATOCRIT 41.1 % (42.0-52.0); HEMOGLOBIN 13.6 g/dl (13.5-17.5); MEAN CORPUSCULAR HEMOGLOBIN 30.6 pg (27.0-33.0); MEAN CORPUSCULAR HGB CONC 33.1 g/dl (32.0-36.5); MEAN CORPUSCULAR VOLUME 92.4 fl (80.0-96.0); PLATELET COUNT, AUTOMATED 183 10^3/uL (150-450); RED BLOOD COUNT 4.45 10^6/uL (4.30-6.10); WHITE BLOOD COUNT 7.8 10^3/uL (4.0-10.0)
[2023-01-02 06:00] VITALS: BP 124/76; TEMP 98.5; O2SAT 94
[2023-01-02 06:35] LABS: BLOOD UREA NITROGEN 17 MG/DL (9-23); CALCIUM LEVEL 9.2 MG/DL (8.3-10.6); CARBON DIOXIDE LEVEL 25 MMOL/L (20-31); CHLORIDE LEVEL 105 MMOL/L (98-107); CREATININE FOR GFR 0.71 MG/DL (0.70-1.30); GLOMERULAR FILTRATION RATE > 60.0 (>49); GLUCOSE, FASTING 183 MG/DL (74-106); POTASSIUM SERUM 4.3 MMOL/L (3.5-5.1); SODIUM LEVEL 141 MMOL/L (136-145)
[2023-01-02 06:45] VITALS: BP 128/73
[2023-01-02] MEDS: HYDROMORPHONE HCL 0.5 MG/ 0.5 ML SYRINGE IV PRN (06:49)
[2023-01-02] MEDS: DOCUSATE SODIUM 100MG CAPSULE PO SCH (08:24)
[2023-01-02] MEDS: CLOPIDOGREL 75 MG TAB PO SCH (08:24)
[2023-01-02 08:25] VITALS: BP 148/86
[2023-01-02] MEDS: INSULIN LISPRO (NovoLOG) PER UNIT SC SCH ×2 (08:25→12:30)
[2023-01-02] MEDS: METOPROLOL TART 25 MG TABLET PO SCH (08:25)
[2023-01-02] MEDS: GABAPENTIN 100 MG CAP PO SCH (08:26)
[2023-01-02] MEDS: MIRALAX *UNIT DOSE* 17GM PACKET PO SCH (08:26)
[2023-01-02] MEDS: ACETAMINOPHEN TAB 650MG DOSE (2X325MG) PO PRN (11:35)
[2023-01-02] MEDS ORDERED: DILA2TAB6 PO (14:34)
== END 2023-01-02 15:22 | disposition home or self-care (01) | DRG 184 ==
LOC: M ED 15:03 → M ED INP 21:39 → M MSPAV 12-31 11:24
PROVIDERS: ADMIT Internal Medicine; ATTEND Family Medicine
DX: S22.41XA Multiple fractures of ribs, right side, initial encounter for closed fracture (principal); J90 Pleural effusion, not elsewhere classified; I10 Essential (primary) hypertension; E78.5 Hyperlipidemia, unspecified; I25.10 Atherosclerotic heart disease of native coronary artery without angina pectoris; K21.9 Gastro-esophageal reflux disease without esophagitis; M19.90 Unspecified osteoarthritis, unspecified site; R55 Syncope and collapse; S30.1XXA Contusion of abdominal wall, initial encounter; E11.40 Type 2 diabetes mellitus with diabetic neuropathy, unspecified; N40.0 Benign prostatic hyperplasia without lower urinary tract symptoms; W11.XXXA Fall on and from ladder, initial encounter; Y92.009 Unspecified place in unspecified non-institutional (private) residence as the place of occurrence of the external cause; K57.30 Diverticulosis of large intestine without perforation or abscess without bleeding; Z96.641 Presence of right artificial hip joint; Z96.611 Presence of right artificial shoulder joint; Z88.8 Allergy status to other drugs, medicaments and biological substances; Z79.82 Long term (current) use of aspirin; Z79.899 Other long term (current) drug therapy

== ENCOUNTER → 2023-02-21 | Outpatient (REF) | payer MEDICARE, OTHER ==
[~2023-02-21] MED LIST changes: +ACET-683 PO; +DILA2TAB6 PO; +GABA-1171 PO; +GLUC1KIT SUBQ; +JARD1TAB3 PO; +LIDO1ADH20 TOP; +LISI40TA4 PO; +METH-1164 PO; +METH-1165 PO; +OXYC-517 PO; +ROSU40TA4 PO
[2023-02-21 12:08] LABS: BLOOD UREA NITROGEN 14 MG/DL (9-23); CALCIUM LEVEL 9.2 MG/DL (8.3-10.6); CARBON DIOXIDE LEVEL 27 MMOL/L (20-31); CHLORIDE LEVEL 103 MMOL/L (98-107); CREATININE FOR GFR 0.78 MG/DL (0.70-1.30); GLOMERULAR FILTRATION RATE > 60.0 (>49); GLUCOSE, FASTING 125 MG/DL (74-106); POTASSIUM SERUM 4.1 MMOL/L (3.5-5.1); SODIUM LEVEL 139 MMOL/L (136-145)
[2023-02-21 12:17] LABS: HEMOGLOBIN A1c 7.2 % (4.0-6.0)
== END ==
LOC: M SFHCCLAY 07:29
PROVIDERS: ATTEND Family Medicine
DX: Q61.00 Congenital renal cyst, unspecified (principal); E11.9 Type 2 diabetes mellitus without complications

== ENCOUNTER → 2023-10-31 | Outpatient (REF) | payer MEDICARE, OTHER ==
[~2023-10-31] MED LIST changes: -ROSU40TA4 PO; +ROSU40TA63 PO
[2023-10-31 12:15] LABS: HEMATOCRIT 46.4 % (42.0-52.0); HEMOGLOBIN 15.5 g/dl (13.5-17.5); MEAN CORPUSCULAR HEMOGLOBIN 30.9 pg (27.0-33.0); MEAN CORPUSCULAR HGB CONC 33.4 g/dl (32.0-36.5); MEAN CORPUSCULAR VOLUME 92.4 fl (80.0-96.0); PLATELET COUNT, AUTOMATED 135 10^3/uL (150-450); RED BLOOD COUNT 5.02 10^6/uL (4.30-6.10); WHITE BLOOD COUNT 5.3 10^3/uL (4.0-10.0)
[2023-10-31 12:44] LABS: ALBUMIN 4.2 G/DL (3.2-5.2); ALKALINE PHOSPHATASE 63 U/L (46-116); ALT/SGPT 29 U/L (7.0-40); AST/SGOT 16 U/L (<34); BILIRUBIN,TOTAL 0.5 MG/DL (0.3-1.2); BLOOD UREA NITROGEN 20 MG/DL (9-23); CALCIUM LEVEL 9.6 MG/DL (8.3-10.6); CARBON DIOXIDE LEVEL 26 MMOL/L (20-31); CHLORIDE LEVEL 103 MMOL/L (98-107); CHOLESTEROL LEVEL 120 MG/DL (<200); CHOLESTEROL RISK RATIO 3.59 (<5); CREATININE FOR GFR 0.85 MG/DL (0.70-1.30); GLOMERULAR FILTRATION RATE > 60.0 (>42); GLUCOSE, FASTING 122 MG/DL (74-106); HDL CHOLESTEROL 33.4 MG/DL (>40); LDL CHOLESTEROL 49.2 MG/DL (<100); NON-HDL-C 86.6 MG/DL; POTASSIUM SERUM 4.2 MMOL/L (3.5-5.1); PSA SCREENING 1.89 NG/ML (< 4.00); SODIUM LEVEL 137 MMOL/L (136-145); TOTAL PROTEIN 6.5 G/DL (5.7-8.2); TRIGLYCERIDES LEVEL 187 MG/DL (<150)
[2023-10-31 13:03] LABS: HEMOGLOBIN A1c 7.8 % (4.0-6.0)
== END ==
LOC: M SFHCCLAY 07:13
PROVIDERS: ATTEND Family Medicine
DX: Z95.1 Presence of aortocoronary bypass graft (principal); I10 Essential (primary) hypertension; E11.40 Type 2 diabetes mellitus with diabetic neuropathy, unspecified; N52.9 Male erectile dysfunction, unspecified; Z12.5 Encounter for screening for malignant neoplasm of prostate; E11.9 Type 2 diabetes mellitus without complications
CPT/HCPCS: 80053; 80061; 83036; 85027; G0103

== ENCOUNTER → 2023-11-02 | Outpatient (REF) | payer MEDICARE, OTHER ==
[2023-11-02 14:24] LABS: BASO % 0.6 % (0.0-1.0); EOS # 0.1 10^3/uL (0.0-0.5); EOS % 2.1 % (0.0-3.0); HEMATOCRIT 49.4 % (42.0-52.0); HEMOGLOBIN 16.2 g/dl (13.5-17.5); LYMPH # 1.5 10^3/uL (1.5-5.0); LYMPH % 22.5 % (24.0-44.0); MEAN CORPUSCULAR HEMOGLOBIN 31.6 pg (27.0-33.0); MEAN CORPUSCULAR HGB CONC 32.8 g/dl (32.0-36.5); MEAN CORPUSCULAR VOLUME 96.3 fl (80.0-96.0); MONO # 0.5 10^3/uL (0.0-0.8); NEUTROPHILS # 4.4 10^3/uL (1.5-8.5); NEUTROPHILS % 66.2 % (36.0-66.0); PLATELET COUNT, AUTOMATED 163 10^3/uL (150-450); RED BLOOD COUNT 5.13 10^6/uL (4.30-6.10); WHITE BLOOD COUNT 6.6 10^3/uL (4.0-10.0)
[2023-11-02 15:03] LABS: HEMOGLOBIN A1c 7.8 % (4.0-6.0)
[2023-11-02 15:18] LABS: CREATININE, URINE 79.1 MG/DL; MAU/CREAT RATIO 77.1 MCG/MG (0.0-30.0)
[2023-11-02 15:22] LABS: ALBUMIN 4.6 G/DL (3.2-5.2); ALKALINE PHOSPHATASE 73 U/L (46-116); ALT/SGPT 36 U/L (7.0-40); AST/SGOT 17 U/L (<34); BILIRUBIN,TOTAL 0.4 MG/DL (0.3-1.2); BLOOD UREA NITROGEN 19 MG/DL (9-23); CALCIUM LEVEL 9.9 MG/DL (8.3-10.6); CARBON DIOXIDE LEVEL 27 MMOL/L (20-31); CHLORIDE LEVEL 106 MMOL/L (98-107); CHOLESTEROL LEVEL 128 MG/DL (<200); CHOLESTEROL RISK RATIO 3.45 (<5); CREATININE FOR GFR 0.91 MG/DL (0.70-1.30); GLOMERULAR FILTRATION RATE > 60.0 (>42); GLUCOSE, FASTING 149 MG/DL (74-106); LDL CHOLESTEROL 44.4 MG/DL (<100); POTASSIUM SERUM 4.9 MMOL/L (3.5-5.1); PSA SCREENING 2.17 NG/ML (< 4.00); SODIUM LEVEL 141 MMOL/L (136-145); TRIGLYCERIDES LEVEL 233 MG/DL (<150)
== END ==
LOC: M SFHCCLAY 08:17
PROVIDERS: ATTEND Family Medicine
DX: R59.0 Localized enlarged lymph nodes (principal); I10 Essential (primary) hypertension; E11.40 Type 2 diabetes mellitus with diabetic neuropathy, unspecified; Z95.1 Presence of aortocoronary bypass graft; N52.9 Male erectile dysfunction, unspecified; Z12.5 Encounter for screening for malignant neoplasm of prostate
CPT/HCPCS: 80053; 80061; 82043; 83036; 85025; G0103

== ENCOUNTER → 2023-11-10 | Outpatient (CLI) | payer MEDICARE, OTHER | LOC: M RAD 12:52 | PROVIDERS: ATTEND Family Medicine | DX: R59.0 Localized enlarged lymph nodes (principal) ==

== ENCOUNTER → 2023-12-27 | Outpatient (CLI) | payer MEDICARE, OTHER ==
[~2023-12-27] MED LIST changes: +LIDOCAINE 1% MDV 20ML VIAL As Ordered ONE
[2023-12-27 07:40] VITALS: TEMP 97.8
[2023-12-27 08:37] VITALS: BP 183/79; O2SAT 96
== END ==
LOC: M IRPRO 07:38
PROVIDERS: ATTEND Family Medicine
DX: M79.89 Other specified soft tissue disorders (principal)

== ENCOUNTER 2024-01-30 09:56 | Day surgery (SDC) | payer MEDICARE, OTHER ==
[~2024-01-30] VITALS: Ht 180.3 cm; Wt 88.3 kg
[~2024-01-30 09:56] MED LIST changes: +ACET650T61 PO; +JARD1TAB PO; -LIDOCAINE 1% MDV 20ML VIAL As Ordered ONE
[2024-01-30] MEDS ORDERED: LR 1,000 ML IV SCH ×2 (11:05→14:25)
[2024-01-30] MEDS: SCOPOLAMINE 1MG TRANSDERMAL PATCH TOP ONE (11:29)
[2024-01-30] MEDS ORDERED: fentaNYL 100 MCG/2 ML INJECTION As Ordered ONE (11:42)
[2024-01-30] MEDS ORDERED: MIDAZOLAM INJ 2MG/2ML VIAL As Ordered ONE (11:42)
[2024-01-30] MEDS ORDERED: propofoL 200 MG/20 ML VIAL As Ordered ONE (11:43)
[2024-01-30] MEDS ORDERED: LIDOCAINE 2% 100MG/5ML SDV (FOR ANES.) As Ordered ONE (11:43)
[2024-01-30] MEDS ORDERED: SUCCINYLCHOLINE 100MG/5ML SYRINGE As Ordered ONE (11:44)
[2024-01-30] MEDS ORDERED: ONDANSETRON 4MG 2ML VIAL As Ordered ONE (11:44)
[2024-01-30] MEDS ORDERED: ACETAMINOPHEN 1000MG 100ML IV BAG As Ordered ONE (13:10)
[2024-01-30] MEDS ORDERED: ePHEDrine SULFATE 25 MG/5 ML(5MG/ML) SYRINGE As Ordered ONE (13:30)
[2024-01-30] MEDS ORDERED: PHENYLephrine 500MCG 5ML (100MCG/ML) SYRINGE As Ordered ONE (13:30)
[2024-01-30] MEDS: BACITRACIN OINTMENT 30GM TUBE As Ordered ONE (14:00)
[2024-01-30] MEDS: LIDOCAINE W/EPINEPHRINE 1% 20ML VIAL As Ordered ONE (14:01)
[2024-01-30] MEDS ORDERED: HYDROMORPHONE HCL 0.5 MG/ 0.5 ML SYRINGE IV PRN (14:25)
[2024-01-30] MEDS ORDERED: fentaNYL 100 MCG/2 ML INJECTION IV PRN (14:25)
[2024-01-30] MEDS: oxyCODONE 5MG TAB PO PRN (14:46)
[2024-01-30] MEDS: ONDANSETRON 4MG 2ML VIAL IV PRN (14:47)
[2024-01-30 15:20] VITALS: BP 162/75; TEMP 97; O2SAT 97
== END 2024-01-30 16:10 | disposition home or self-care (01) ==
LOC: M SDC 09:56
PROVIDERS: ATTEND Otolaryngology
DX: R59.9 Enlarged lymph nodes, unspecified (principal); I10 Essential (primary) hypertension; E78.5 Hyperlipidemia, unspecified; E11.9 Type 2 diabetes mellitus without complications; N40.0 Benign prostatic hyperplasia without lower urinary tract symptoms; Z79.02 Long term (current) use of antithrombotics/antiplatelets; Z79.84 Long term (current) use of oral hypoglycemic drugs; K57.92 Diverticulitis of intestine, part unspecified, without perforation or abscess without bleeding; K21.9 Gastro-esophageal reflux disease without esophagitis; Z92.3 Personal history of irradiation; Z79.4 Long term (current) use of insulin; Z79.82 Long term (current) use of aspirin; Z79.899 Other long term (current) drug therapy; Z88.5 Allergy status to narcotic agent; Z88.8 Allergy status to other drugs, medicaments and biological substances
CPT/HCPCS: 21556; 88305; J0131; J0330; J1100; J2250; J2371; J2405; J3010

== ENCOUNTER → 2024-02-06 | Outpatient (CLI) | payer MEDICARE, OTHER | LOC: M PLARAD 10:51 | PROVIDERS: ATTEND Specialist | DX: C85.98 Non-Hodgkin lymphoma, unspecified, lymph nodes of multiple sites (principal) | CPT/HCPCS: 78815; A9552 ==

== ENCOUNTER → 2024-02-13 | Outpatient (CLI) | payer MEDICARE, OTHER ==
[~2024-02-13] MED LIST changes: +GABA-1490 PO; -GABA600T4 PO; +LIDOCAINE 1% MDV 20ML VIAL As Ordered ONE; +MIRT-84 PO; +NS 1,000 ML IV SCH; -ROSU40TA63 PO; +ROSU40TA81 PO
[2024-02-13 08:15] VITALS: TEMP 97.4
[2024-02-13 09:41] VITALS: BP 147/82; O2SAT 95
[2024-02-13 10:14] LABS: BASO # 0.1 10^3/uL (0.0-0.2); BASO % 0.7 % (0.0-1.0); EOS # 0.1 10^3/uL (0.0-0.5); EOS % 1.9 % (0.0-3.0); HEMATOCRIT 46.1 % (42.0-52.0); HEMOGLOBIN 15.5 g/dl (13.5-17.5); LYMPH # 1.6 10^3/uL (1.5-5.0); LYMPH % 23.2 % (24.0-44.0); MEAN CORPUSCULAR HEMOGLOBIN 30.8 pg (27.0-33.0); MEAN CORPUSCULAR HGB CONC 33.6 g/dl (32.0-36.5); MEAN CORPUSCULAR VOLUME 91.5 fl (80.0-96.0); MONO # 0.6 10^3/uL (0.0-0.8); MONO % 8.2 % (2.0-8.0); NEUTROPHILS # 4.5 10^3/uL (1.5-8.5); NEUTROPHILS % 65.6 % (36.0-66.0); PLATELET COUNT, AUTOMATED 133 10^3/uL (150-450); RED BLOOD COUNT 5.04 10^6/uL (4.30-6.10); WHITE BLOOD COUNT 6.8 10^3/uL (4.0-10.0)
== END ==
LOC: M IRPRO 08:03
PROVIDERS: ATTEND Specialist
DX: C85.90 Non-Hodgkin lymphoma, unspecified, unspecified site (principal)

== ENCOUNTER → 2024-03-08 | Outpatient (REF) | payer MEDICARE, OTHER ==
[~2024-03-08] MED LIST changes: -LIDOCAINE 1% MDV 20ML VIAL As Ordered ONE; -NS 1,000 ML IV SCH
[2024-03-08 11:55] LABS: HEMOGLOBIN A1c 6.8 % (4.0-6.0)
== END ==
LOC: M SFHCCLAY 07:54
PROVIDERS: ATTEND Family Medicine
DX: E11.40 Type 2 diabetes mellitus with diabetic neuropathy, unspecified (principal)

== ENCOUNTER → 2024-03-13 | Outpatient (CLI) | payer MEDICARE, OTHER | LOC: M ONCR 07:37 | PROVIDERS: ATTEND General Practice | DX: C82.11 Follicular lymphoma grade II, lymph nodes of head, face, and neck (principal); Z98.890 Other specified postprocedural states; Z80.8 Family history of malignant neoplasm of other organs or systems; Z88.5 Allergy status to narcotic agent; Z88.8 Allergy status to other drugs, medicaments and biological substances; Z91.018 Allergy to other foods; Z79.02 Long term (current) use of antithrombotics/antiplatelets; Z79.4 Long term (current) use of insulin; Z79.82 Long term (current) use of aspirin; Z79.84 Long term (current) use of oral hypoglycemic drugs; Z79.899 Other long term (current) drug therapy ==

== ENCOUNTER → 2024-04-18 | Outpatient (RCR) | payer MEDICARE, OTHER | LOC: M ONCR 03-27 10:23 | PROVIDERS: ATTEND General Practice | DX: Z51.0 Encounter for antineoplastic radiation therapy (principal); C82.11 Follicular lymphoma grade II, lymph nodes of head, face, and neck ==

== ENCOUNTER 2024-04-22 09:43 | Day surgery (SDC) | payer MEDICARE, OTHER ==
[~2024-04-22] VITALS: Ht 180.3 cm; Wt 89.4 kg
[~2024-04-22 09:43] MED LIST changes: +NS 250 ML IV ONE
[2024-04-22] MEDS ORDERED: LIDOCAINE 2% 100MG/5ML SDV (FOR ANES.) As Ordered ONE (10:17)
[2024-04-22] MEDS ORDERED: propofoL 500 MG/50 ML VIAL As Ordered ONE (10:20)
[2024-04-22] MEDS ORDERED: propofoL 200 MG/20 ML VIAL As Ordered ONE (11:44)
[2024-04-22 12:10] VITALS: BP 139/72; O2SAT 94
== END 2024-04-22 12:30 | disposition home or self-care (01) ==
LOC: M OPP 09:43
PROVIDERS: ATTEND Internal Medicine Gastroenterology
DX: D50.9 Iron deficiency anemia, unspecified (principal); K64.8 Other hemorrhoids; K29.80 Duodenitis without bleeding; K57.30 Diverticulosis of large intestine without perforation or abscess without bleeding; Z87.19 Personal history of other diseases of the digestive system; Z98.0 Intestinal bypass and anastomosis status; Z90.49 Acquired absence of other specified parts of digestive tract; I25.10 Atherosclerotic heart disease of native coronary artery without angina pectoris; I10 Essential (primary) hypertension; E11.9 Type 2 diabetes mellitus without complications; E78.00 Pure hypercholesterolemia, unspecified; Z95.5 Presence of coronary angioplasty implant and graft; N40.0 Benign prostatic hyperplasia without lower urinary tract symptoms; C82.90 Follicular lymphoma, unspecified, unspecified site; Z79.899 Other long term (current) drug therapy; Z79.82 Long term (current) use of aspirin; Z79.02 Long term (current) use of antithrombotics/antiplatelets; Z79.84 Long term (current) use of oral hypoglycemic drugs; Z79.4 Long term (current) use of insulin; Z88.5 Allergy status to narcotic agent; Z88.8 Allergy status to other drugs, medicaments and biological substances; Z91.018 Allergy to other foods

== ENCOUNTER 2024-05-03 08:23 | Outpatient (RCR) | payer MEDICARE, OTHER ==
[~2024-05-03 08:23] MED LIST changes: -NS 250 ML IV ONE
== END 2024-05-18 ==
LOC: M ONCR 08:23
PROVIDERS: ATTEND General Practice
DX: Z51.0 Encounter for antineoplastic radiation therapy (principal); C82.11 Follicular lymphoma grade II, lymph nodes of head, face, and neck

== ENCOUNTER → 2024-10-14 | Outpatient (CLI) | payer MEDICARE, OTHER ==
[~2024-10-14] MED LIST changes: -GLUC1KIT SUBQ; +GLUC1VIA14 SUBQ; +ISOVUE-370 76% 100ML VIAL As Ordered ONE; +MIRT-10 PO
[2024-10-14 08:19] LABS: ALBUMIN 4.5 G/DL (3.2-5.2); ALKALINE PHOSPHATASE 73 U/L (40-129); ALT/SGPT 29 U/L (7.0-40); AST/SGOT 12 U/L (<34); BILIRUBIN,TOTAL 0.4 MG/DL (0.3-1.2); BLOOD UREA NITROGEN 20 MG/DL (9-23); CARBON DIOXIDE LEVEL 28 MMOL/L (20-31); CHLORIDE LEVEL 107 MMOL/L (98-107); GLOMERULAR FILTRATION RATE > 90.0 (>42); GLUCOSE, FASTING 122 MG/DL (74-106); POTASSIUM SERUM 4.5 MMOL/L (3.5-5.1); SODIUM LEVEL 145 MMOL/L (136-145); TOTAL PROTEIN 7.2 G/DL (5.7-8.2)
== END ==
LOC: M RAD 07:24
PROVIDERS: ATTEND General Practice
DX: C82.11 Follicular lymphoma grade II, lymph nodes of head, face, and neck (principal)
CPT/HCPCS: 36415; 70491; 80053; Q9967

== ENCOUNTER → 2024-10-15 | Outpatient (REF) | payer MEDICARE, OTHER ==
[~2024-10-15] MED LIST changes: -ISOVUE-370 76% 100ML VIAL As Ordered ONE
[2024-10-15 12:23] LABS: CHOLESTEROL RISK RATIO 3.1 (<5); HDL CHOLESTEROL 35.1 MG/DL (>40); HEMATOCRIT 47.7 % (42.0-52.0); LDL CHOLESTEROL 44.9 MG/DL (<100); MEAN CORPUSCULAR HEMOGLOBIN 30.7 pg (27.0-33.0); MEAN CORPUSCULAR HGB CONC 33.5 g/dl (32.0-36.5); MEAN CORPUSCULAR VOLUME 91.4 fl (80.0-96.0); NON-HDL-C 73.9 MG/DL; PERCENT SATURATION 25.3 % (19.7-50.0); PLATELET COUNT, AUTOMATED 124 10^3/uL (150-450); RED BLOOD COUNT 5.22 10^6/uL (4.30-6.10); WHITE BLOOD COUNT 5.2 10^3/uL (4.0-10.0)
[2024-10-15 12:26] LABS: FERRITIN 76.9 NG/ML (10.5-307.3)
[2024-10-15 12:29] LABS: HEMOGLOBIN A1c 7.7 % (4.0-6.0)
[2024-10-15 12:50] LABS: CREATININE, URINE 81.7 MG/DL; MAU/CREAT RATIO 156.6 MCG/MG (0.0-30.0)
== END ==
LOC: M SFHCCLAY 08:30
PROVIDERS: ATTEND Physician Assistant
DX: Z00.00 Encounter for general adult medical examination without abnormal findings (principal); E11.9 Type 2 diabetes mellitus without complications; I10 Essential (primary) hypertension; E78.2 Mixed hyperlipidemia; C82.91 Follicular lymphoma, unspecified, lymph nodes of head, face, and neck; D50.9 Iron deficiency anemia, unspecified; F32.1 Major depressive disorder, single episode, moderate; Z95.1 Presence of aortocoronary bypass graft; N40.1 Benign prostatic hyperplasia with lower urinary tract symptoms; N52.9 Male erectile dysfunction, unspecified

== ENCOUNTER → 2024-10-17 | Outpatient (CLI) | payer MEDICARE, OTHER | LOC: M ONCR 11:14 | PROVIDERS: ATTEND General Practice | DX: C82 Follicular lymphoma (principal); Z92.3 Personal history of irradiation; Z98.890 Other specified postprocedural states; Z88.5 Allergy status to narcotic agent; Z88.8 Allergy status to other drugs, medicaments and biological substances; Z91.018 Allergy to other foods; Z79.02 Long term (current) use of antithrombotics/antiplatelets; Z79.4 Long term (current) use of insulin; Z79.82 Long term (current) use of aspirin; Z79.84 Long term (current) use of oral hypoglycemic drugs; Z79.899 Other long term (current) drug therapy ==

== ENCOUNTER 2024-12-23 13:53 | Observation (INO) | payer MEDICARE, OTHER ==
[~2024-12-23] VITALS: Ht 180.3 cm; Wt 90.0 kg
[~2024-12-23 13:53] MED LIST changes: +LISI40TA10 PO; -LISI40TA4 PO
[2024-12-23 15:34] LABS: KETONE, URINE MANUAL REFLEX NEGATIVE (NEGATIVE); SP GRAVITY,URINE MANUAL REFLEX 1.020 (1.002-1.035); UROBILINOGEN, UA MANUAL REFLEX NORMAL (NORMAL)
[2024-12-23 15:35] LABS: NITRITE, URINE MANUAL RFX NEGATIVE (NEGATIVE); PROTEIN, URINE MANUAL REFLEX 3+ mg/dL (NEGATIVE)
[2024-12-23 15:37] LABS: HYALINE CAST, URINE RFX NONE SEEN /lpf (0-1); RBC, URINE MAN REFLEX TNTC /hpf (0-3); SQUAMOUS EPITHELIAL URINE RFX NONE SEEN /hpf (SMALL AMT)
[2024-12-23 15:38] LABS: MICROSCOPIC EXAM RFX PERFORMED
[2024-12-23 17:04] LABS: BASO # 0.1 10^3/uL (0.0-0.2); BASO % 0.6 % (0.0-1.0); EOS # 0.1 10^3/uL (0.0-0.5); EOS % 1.0 % (0.0-3.0); LYMPH # 1.4 10^3/uL (1.5-5.0); LYMPH % 15.8 % (24.0-44.0); MONO # 0.7 10^3/uL (0.0-0.8); MONO % 7.5 % (2.0-8.0); NEUTROPHILS # 6.7 10^3/uL (1.5-8.5); NEUTROPHILS % 74.5 % (36.0-66.0); PLATELET COUNT, AUTOMATED 152 10^3/uL (150-450)
[2024-12-23 17:19] LABS: CALCIUM LEVEL 9.5 MG/DL (8.3-10.6); CARBON DIOXIDE LEVEL 20.0 MMOL/L (20-31); CHLORIDE LEVEL 106.0 MMOL/L (98-107); CREATININE FOR GFR 0.92 MG/DL (0.70-1.30); GLOMERULAR FILTRATION RATE 88.9 (>42); POTASSIUM SERUM 4.3 MMOL/L (3.5-5.1); SODIUM LEVEL 142.0 MMOL/L (136-145)
[2024-12-23] MEDS ORDERED: ISOVUE-370 76% 100 ML VIAL As Ordered ONE (17:27)
[2024-12-23 17:46] LABS: INR 0.99
[2024-12-23] MEDS ORDERED: GABA-1172 PO ×2 (19:56)
[2024-12-23] MEDS ORDERED: HOME MED LIST COMPLETE! XX SCH (20:00)
[2024-12-23] MEDS: INSULIN LISPRO (NovoLOG) PER UNIT As Ordered ONE (22:08)
[2024-12-23] MEDS ORDERED: LIDOCAINE 2% 100 MG/5 ML SDV (FOR ANES.) As Ordered ONE (22:33)
[2024-12-23] MEDS ORDERED: MIDAZOLAM INJ 2 MG/2 ML VIAL As Ordered ONE (22:33)
[2024-12-23] MEDS ORDERED: SUCCINYLCHOLINE 100MG/5ML SYRINGE As Ordered ONE (22:33)
[2024-12-23] MEDS ORDERED: ROCURONIUM BROMIDE 50MG/5ML VIAL As Ordered ONE (22:33)
[2024-12-23] MEDS ORDERED: dexAMETHasone 4 MG/ML 1 ML VIAL As Ordered ONE (22:34)
[2024-12-23] MEDS ORDERED: ONDANSETRON 4MG 2ML VIAL As Ordered ONE (22:34)
[2024-12-23] MEDS ORDERED: SUGAMMADEX SODIUM 500 MG/5 ML VIAL As Ordered ONE (22:42)
[2024-12-23] MEDS ORDERED: ACETAMINOPHEN 1000MG/100ML IV BAG As Ordered ONE (22:45)
[2024-12-23] MEDS: ceFAZolin SOD 2 GM in DEXTROSE 5% (D5W) ADV/MINI-BAG 50 ML IV ONE (23:10)
[2024-12-23] MEDS ORDERED: METOPROLOL 5 MG/5 ML VIAL As Ordered ONE (23:32)
[2024-12-23] MEDS ORDERED: GLUCOSE 4 GM CHEW PO PRN (23:35)
[2024-12-23] MEDS ORDERED: DEXTROSE 50% 50 ML SYRINGE IV PRN (23:35)
[2024-12-23] MEDS ORDERED: MOM 30 ML SUSPENSION UDC PO PRN (23:35)
[2024-12-23] MEDS ORDERED: GLUCAGON INJ 1 MG VIAL SC PRN (23:35)
[2024-12-24] MEDS ORDERED: GLUCAGON INJ 1 MG VIAL SC PRN (00:35)
[2024-12-24] MEDS ORDERED: INSULIN LISPRO (NovoLOG) PER UNIT SC PRN (00:35)
[2024-12-24] MEDS ORDERED: HYDROMORPHONE HCL 0.5 MG/0.5 ML SYRINGE IV PRN (00:35)
[2024-12-24] MEDS: LR 1,000 ML IV SCH (00:35)
[2024-12-24] MEDS ORDERED: DEXTROSE 50% 50 ML SYRINGE IV PRN (00:35)
[2024-12-24] MEDS ORDERED: ONDANSETRON 4MG 2ML VIAL IV PRN (00:35)
[2024-12-24] MEDS ORDERED: GLUCOSE 4 GM CHEW PO PRN (00:35)
[2024-12-24] MEDS: LABETALOL 100 MG/20 ML VIAL IV PRN (01:14)
[2024-12-24] MEDS: NS (Normal Saline) 0.9% 1,000 ML IV SCH (01:14)
[2024-12-24 05:21] VITALS: BP 161/82; TEMP 97.7; O2SAT 94
[2024-12-24] MEDS: ACETAMINOPHEN 325 MG TAB PO PRN (05:32)
[2024-12-24 06:51] LABS: PLATELET COUNT, AUTOMATED 138 10^3/uL (150-450)
[2024-12-24 07:13] LABS: ALT/SGPT 18 U/L (7.0-40); AST/SGOT 12 U/L (<34); CALCIUM LEVEL 8.9 MG/DL (8.3-10.6); CARBON DIOXIDE LEVEL 19 MMOL/L (20-31); CHLORIDE LEVEL 106 MMOL/L (98-107); CREATININE FOR GFR 0.83 MG/DL (0.70-1.30); GLOMERULAR FILTRATION RATE > 90.0 (>42); POTASSIUM SERUM 4.8 MMOL/L (3.5-5.1); SODIUM LEVEL 140 MMOL/L (136-145)
[2024-12-24 07:36] VITALS: BP 145/90; TEMP 97; O2SAT 95
[2024-12-24 08:00] VITALS: BP 156/84; TEMP 98.7; O2SAT 95
[2024-12-24] MEDS: ceFAZolin SODIUM 2 GM in DEXTROSE 5% (D5W) ADV/MINI-BAG 50 ML IV SCH (09:32)
[2024-12-24] MEDS: GABAPENTIN 300 MG CAP PO SCH ×2 (09:33→20:14)
[2024-12-24] MEDS: FINASTERIDE 5 MG TAB PO SCH (09:33)
[2024-12-24] MEDS: INSULIN LISPRO (NovoLOG) PER UNIT SC SCH ×2 (09:33→20:16)
[2024-12-24] MEDS: METOPROLOL TART 25 MG TABLET PO SCH (09:34)
[2024-12-24 15:51] VITALS: BP 137/63; TEMP 98.5; O2SAT 96
[2024-12-24 19:07] VITALS: BP 156/74; TEMP 97.7; O2SAT 94
[2024-12-24] MEDS: ASPIRIN 81 MG CHEWABLE TABLET PO SCH (20:14)
[2024-12-24] MEDS: TAMSULOSIN 0.4 MG CAP PO SCH (20:14)
[2024-12-24] MEDS: ROSUVASTATIN 10 MG TAB PO SCH (20:14)
[2024-12-24] MEDS: CALCIUM CARBONATE 500 MG CHEW U/D PO PRN (21:10)
[2024-12-24 23:16] VITALS: BP 133/66; TEMP 97.5; O2SAT 96
[2024-12-25 03:29] VITALS: BP 130/62; TEMP 97.3; O2SAT 96
[2024-12-25 07:30] VITALS: BP 142/71; TEMP 96.9; O2SAT 95
[2024-12-25 08:35] LABS: PLATELET COUNT, AUTOMATED 121 10^3/uL (150-450)
[2024-12-25 09:02] LABS: ALT/SGPT 17 U/L (7.0-40); AST/SGOT 17 U/L (<34); CALCIUM LEVEL 9.4 MG/DL (8.3-10.6); CARBON DIOXIDE LEVEL 19 MMOL/L (20-31); CHLORIDE LEVEL 103 MMOL/L (98-107); CREATININE FOR GFR 0.86 MG/DL (0.70-1.30); GLOMERULAR FILTRATION RATE > 90.0 (>42); POTASSIUM SERUM 4.5 MMOL/L (3.5-5.1); SODIUM LEVEL 141 MMOL/L (136-145)
[2024-12-25 09:26] VITALS: BP 142/71
[2024-12-25] MEDS ORDERED: FINA5TAB2 PO (12:27)
== END 2024-12-25 14:31 | disposition home or self-care (01) ==
LOC: M ED 13:53 → M SDC 22:33 → M PCU 22:34 → UNDOADMOB 12-24 05:15 → M PCU 12-24 05:15 → INTOOBSV 12-24 05:15 → UNDODISOB 12-25 14:31
PROVIDERS: ADMIT Family Medicine; ATTEND Urology
DX: R31.0 Gross hematuria (principal); E11.9 Type 2 diabetes mellitus without complications; I10 Essential (primary) hypertension; E78.5 Hyperlipidemia, unspecified; K21.9 Gastro-esophageal reflux disease without esophagitis; I25.10 Atherosclerotic heart disease of native coronary artery without angina pectoris; Z95.1 Presence of aortocoronary bypass graft; Z79.82 Long term (current) use of aspirin; Z79.4 Long term (current) use of insulin; Z79.84 Long term (current) use of oral hypoglycemic drugs; Z79.899 Other long term (current) drug therapy; Z88.5 Allergy status to narcotic agent; Z88.8 Allergy status to other drugs, medicaments and biological substances
CPT/HCPCS: 36415; 52001; 52214; 52601; 74178; 80047; 80048; 80053; 81000; 81015; 85014; 85018; 85025; 85027; 85610; 85730; 86850; 86900; 86901; 96365; 96366; 96375; 96376; 99291; 99292; G0378; J0131; J0330; J0616; J0690; J1100; J1815; J1920; J2250; J2405; J3010; Q9967

== ENCOUNTER → 2025-01-06 | Outpatient (REF) | payer MEDICARE, OTHER ==
[~2025-01-06] MED LIST changes: +FINA5TAB2 PO; +GABA-1172 PO
[2025-01-06 15:32] LABS: AMORPHOUS SEDIMENT SMALL (NEGATIVE); APPEARANCE, URINE CLEAR (CLEAR); BACTERIA, URINE AUTO NEGATIVE (NEGATIVE); BILIRUBIN, URINE AUTO NEGATIVE (NEGATIVE); BLOOD, URINE BLOOD 3+ (NEGATIVE); GLUCOSE, URINE (UA) AUTO 3+ mg/dL (NEGATIVE); KETONE, URINE AUTO NEGATIVE (NEGATIVE); LEUKOCYTE ESTERASE, URINE AUTO NEGATIVE (NEGATIVE); MUCUS, URINE SMALL (NEGATIVE); NITRITE, URINE AUTO NEGATIVE (NEGATIVE); PROTEIN, URINE AUTO 2+ mg/dL (NEGATIVE); RBC, URINE AUTO TNTC /HPF (0-3); SPECIFIC GRAVITY URINE AUTO 1.033 (1.002-1.035); SQUAMOUS EPITHELIAL CELL UR AU 0 /HPF (0-6); UROBILINOGEN, URINE AUTO 0.2 mg/dL (0.0-2.0); WBC, URINE AUTO 8 /HPF (0-3)
== END ==
LOC: M SMT 15:04
PROVIDERS: ATTEND Urology
DX: N39.0 Urinary tract infection, site not specified (principal)

== ENCOUNTER → 2025-01-10 | Outpatient (REF) | payer MEDICARE, OTHER ==
[2025-01-10 18:04] LABS: PLATELET COUNT, AUTOMATED 234 10^3/uL (150-450)
[2025-01-10 18:05] LABS: IRON (FE) 82.0 UG/DL (65-175); PERCENT SATURATION 22.1 % (19.7-50.0)
== END ==
LOC: M SFHCCLAY 14:48
PROVIDERS: ATTEND Physician Assistant
DX: D50.9 Iron deficiency anemia, unspecified (principal)

== ENCOUNTER → 2025-01-21 | Outpatient (REF) | payer MEDICARE, OTHER ==
[2025-01-21 13:41] LABS: APPEARANCE, URINE HAZY (CLEAR); BACTERIA, URINE AUTO NEGATIVE (NEGATIVE); BILIRUBIN, URINE AUTO NEGATIVE (NEGATIVE); BLOOD, URINE BLOOD 3+ (NEGATIVE); GLUCOSE, URINE (UA) AUTO 3+ mg/dL (NEGATIVE); KETONE, URINE AUTO TRACE mg/dL (NEGATIVE); LEUKOCYTE ESTERASE, URINE AUTO 1+ (NEGATIVE); MUCUS, URINE SMALL (NEGATIVE); NITRITE, URINE AUTO NEGATIVE (NEGATIVE); PROTEIN, URINE AUTO 2+ mg/dL (NEGATIVE); RBC, URINE AUTO 67 /HPF (0-3); SPECIFIC GRAVITY URINE AUTO 1.024 (1.002-1.035); SQUAMOUS EPITHELIAL CELL UR AU 0 /HPF (0-6); UROBILINOGEN, URINE AUTO 2.0 mg/dL (0.0-2.0); WBC, URINE AUTO 34 /HPF (0-3)
== END ==
LOC: M SMT 12:47
PROVIDERS: ATTEND Physician Assistant
DX: R30.0 Dysuria (principal)

== ENCOUNTER → 2025-02-10 | Outpatient (REF) | payer MEDICARE, OTHER ==
[~2025-02-10] MED LIST changes: -ASPI-655 PO; +ASPI-737 PO
[2025-02-10 12:23] LABS: ALT/SGPT 21 U/L (7.0-40); AST/SGOT 17 U/L (<34); CALCIUM LEVEL 9.8 MG/DL (8.3-10.6); CARBON DIOXIDE LEVEL 27 MMOL/L (20-31); CHLORIDE LEVEL 105 MMOL/L (98-107); CHOLESTEROL LEVEL 116 MG/DL (<200); CHOLESTEROL RISK RATIO 2.88 (<5); CREATININE FOR GFR 0.87 MG/DL (0.70-1.30); GLOMERULAR FILTRATION RATE > 90.0 (>42); IRON (FE) 34 UG/DL (65-175); LDL CHOLESTEROL 46.8 MG/DL (<100); NON-HDL-C 75.8 MG/DL; PERCENT SATURATION 8.0 % (19.7-50.0); POTASSIUM SERUM 4.6 MMOL/L (3.5-5.1); SODIUM LEVEL 141 MMOL/L (136-145); TRIGLYCERIDES LEVEL 145 MG/DL (<150)
[2025-02-10 12:43] LABS: PLATELET COUNT, AUTOMATED 186 10^3/uL (150-450)
[2025-02-10 13:11] LABS: ESTIMATED AVERAGE GLUCOSE 157.0 MG/DL (60-110)
== END ==
LOC: M SFHCCLAY 07:43
PROVIDERS: ATTEND Physician Assistant
DX: Z00.00 Encounter for general adult medical examination without abnormal findings (principal); E11.9 Type 2 diabetes mellitus without complications; I10 Essential (primary) hypertension; E78.2 Mixed hyperlipidemia; C82.91 Follicular lymphoma, unspecified, lymph nodes of head, face, and neck; D50.9 Iron deficiency anemia, unspecified; F32.1 Major depressive disorder, single episode, moderate; Z95.1 Presence of aortocoronary bypass graft; N40.1 Benign prostatic hyperplasia with lower urinary tract symptoms; N52.9 Male erectile dysfunction, unspecified; R31.0 Gross hematuria

== ENCOUNTER → 2025-02-10 | Outpatient (REF) | payer MEDICARE, OTHER | LOC: M LABDRAWC 10:56 | PROVIDERS: ATTEND Urology | DX: Z12.5 Encounter for screening for malignant neoplasm of prostate (principal) ==

== ENCOUNTER → 2025-02-12 | Outpatient (REF) | payer MEDICARE, OTHER ==
[2025-02-12 14:13] LABS: APPEARANCE, URINE CLEAR (CLEAR); BACTERIA, URINE AUTO NEGATIVE (NEGATIVE); BILIRUBIN, URINE AUTO NEGATIVE (NEGATIVE); BLOOD, URINE BLOOD 2+ (NEGATIVE); GLUCOSE, URINE (UA) AUTO NEGATIVE (NEGATIVE); KETONE, URINE AUTO TRACE mg/dL (NEGATIVE); LEUKOCYTE ESTERASE, URINE AUTO 1+ (NEGATIVE); MUCUS, URINE SMALL (NEGATIVE); NITRITE, URINE AUTO NEGATIVE (NEGATIVE); PROTEIN, URINE AUTO 2+ mg/dL (NEGATIVE); RBC, URINE AUTO 19 /HPF (0-3); SPECIFIC GRAVITY URINE AUTO 1.024 (1.002-1.035); SQUAMOUS EPITHELIAL CELL UR AU 0 /HPF (0-6); UROBILINOGEN, URINE AUTO 0.2 mg/dL (0.0-2.0); WBC, URINE AUTO 22 /HPF (0-3)
== END ==
LOC: M SMT 13:02
PROVIDERS: ATTEND Urology
DX: N39.0 Urinary tract infection, site not specified (principal)

== ENCOUNTER → 2025-03-10 | Outpatient (REF) | payer MEDICARE, OTHER ==
[~2025-03-10] MED LIST changes: +BASA100I SC; +CLOP75TA2; +SEMA0.257
[2025-03-10 13:49] LABS: PLATELET COUNT, AUTOMATED 196 10^3/uL (150-450)
[2025-03-10 13:59] LABS: IRON (FE) 73.0 UG/DL (65-175); PERCENT SATURATION 17.1 % (19.7-50.0)
== END ==
LOC: M SFHCCLAY 08:45
PROVIDERS: ATTEND Physician Assistant
DX: R31.0 Gross hematuria (principal); E11.9 Type 2 diabetes mellitus without complications; I10 Essential (primary) hypertension; E78.2 Mixed hyperlipidemia; C82.91 Follicular lymphoma, unspecified, lymph nodes of head, face, and neck; D50.9 Iron deficiency anemia, unspecified; Z95.1 Presence of aortocoronary bypass graft; N40.1 Benign prostatic hyperplasia with lower urinary tract symptoms; N52.9 Male erectile dysfunction, unspecified

== ENCOUNTER → 2025-03-10 | Outpatient (REF) | payer MEDICARE, OTHER | LOC: M LABDRAWC 14:09 | PROVIDERS: ATTEND Urology | DX: Z12.5 Encounter for screening for malignant neoplasm of prostate (principal) ==

== ENCOUNTER → 2025-03-13 | Outpatient (REF) | payer MEDICARE, OTHER ==
[2025-03-13 16:34] LABS: ESTIMATED AVERAGE GLUCOSE 157.0 MG/DL (60-110)
== END ==
LOC: M SFHCCLAY 08:56
PROVIDERS: ATTEND Physician Assistant
DX: R31.0 Gross hematuria (principal); E11.9 Type 2 diabetes mellitus without complications; I10 Essential (primary) hypertension; E78.2 Mixed hyperlipidemia; C82.91 Follicular lymphoma, unspecified, lymph nodes of head, face, and neck; D50.9 Iron deficiency anemia, unspecified; Z95.1 Presence of aortocoronary bypass graft; N40.1 Benign prostatic hyperplasia with lower urinary tract symptoms; N52.9 Male erectile dysfunction, unspecified

== ENCOUNTER → 2025-03-26 | Outpatient (CLI) | payer MEDICARE, OTHER | LOC: M ONCR 07:53 | PROVIDERS: ATTEND General Practice | DX: C82.11 Follicular lymphoma grade II, lymph nodes of head, face, and neck (principal); E11.9 Type 2 diabetes mellitus without complications; Z79.82 Long term (current) use of aspirin; Z79.84 Long term (current) use of oral hypoglycemic drugs; Z79.85 Long-term (current) use of injectable non-insulin antidiabetic drugs; Z79.899 Other long term (current) drug therapy; Z88.5 Allergy status to narcotic agent; Z88.8 Allergy status to other drugs, medicaments and biological substances; Z91.018 Allergy to other foods; Z92.3 Personal history of irradiation ==